=== PATIENT | female | born 1955 | race African-American/Black ===

== ENCOUNTER 2020-04-16 00:44 | Inpatient (IN) | payer MEDICARE, OTHER ==
[2020-04-16] VITALS (7 sets, daily range): BP systolic 127–182; BP diastolic 70–91
[~2020-04-16] VITALS: Ht 172.7 cm; Wt 75.4 kg
--- NOTE | 2020-04-16 00:55 | NUR ---
ED Nurse Note: Pt brought into ED from home by [facility] for c/o generalized body pain with severe muscle spasms that have become worse over the last 3 days. Pt is aaox4, breathing is normal and unlabored. Pt appears moderately anxious. No cough, SOB or fever. Pt blood sugar was 394 on scene per [facility]. Pt connected to environmental monitoring specialist, safety measures in place. Will continue to monitor.
[2020-04-16] MEDS ORDERED: Morphine Sulfate 4mg/ml Inj (IV USE ONLY) IVP ONE (01:15)
--- NOTE | 2020-04-16 01:15 | NUR ---
ED Nurse Note: Blood drawn by RN and sent to lab.
[2020-04-16 01:35] LABS: BASOPHILS % (AUTO) 0.8 % (0.0-2.0); EOSINOPHILS % (AUTO) 1.9 % (0.0-3.0); HEMATOCRIT 39.4 % (37.0-47.0); HEMOGLOBIN 13.5 G/DL (12.0-16.0); MEAN CORPUSCULAR VOLUME 96 FL (80-99); MONOCYTES % (AUTO) 9.5 % (1.0-10.0); NEUTROPHILS % (AUTO) 57.8 % (45.0-75.0); PLATELET COUNT 274 K/UL (150-450); RED BLOOD COUNT 4.11 M/UL (4.20-5.40); RED CELL DISTRIBUTION WIDTH 11.6 % (11.6-14.8)
[2020-04-16 01:41] LABS: ANION GAP 8 mmol/L (5-15); BLOOD UREA NITROGEN 16 mg/dL (7-18); CALCIUM 8.7 MG/DL (8.5-10.1); CARBON DIOXIDE 28 MMOL/L (21-32); CHLORIDE 103 MMOL/L (98-107); SODIUM 139 MMOL/L (136-145)
[2020-04-16 01:45] LABS: ALANINE AMINOTRANSFERASE 28 U/L (12-78); ALBUMIN 3.9 G/DL (3.4-5.0); ALKALINE PHOSPHATASE 77 U/L (46-116); ASPARTATE AMINO TRANSFERASE 21 U/L (15-37); BILIRUBIN,TOTAL 0.3 MG/DL (0.2-1.0); CREATINE KINASE 191 U/L (26-308)
[2020-04-16] MEDS ORDERED: Miralax 17gm pkt ORAL PRN (02:30)
--- NOTE | 2020-04-16 02:45 | NUR ---
ED Nurse Note: ERMD aware of pt elevated BP.
--- NOTE | 2020-04-16 02:54 | Emergency Room Report ---
History of Present Illness General Chief Complaint: Pain Source: Patient Present Illness HPI 64-year-old female presents the ED for evaluation. Complaining of cramping pain in her legs. Started a few days ago. Radiating to her abdomen and chest. 10 out of 10, throbbing, nonradiating. Denies shortness of breath. States that she suffered a fall in July last year and had to stay in a group home facility until about October of this year. States that he had cramping sensations like this here and there in the past but never this severe. No other aggravating relieving factors. 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 Patient History Past Medical History: DM, HTN Past Surgical History: none Pertinent Family History: none Social History: Denies: smoking, alcohol use, drug use Now: No Immunizations: UTD Reviewed Nursing Documentation: PMH: Agreed; PSxH: Agreed Nursing Documentation-PMH Past Medical History: No History, Except For Hx Hypertension: Yes Hx Diabetes: Yes Review of Systems All Other Systems: negative except mentioned in HPI Physical Exam Vital Signs Date Time Temp Pulse Resp B/P (MAP) Pulse Ox O2 Delivery O2 Flow Rate FiO2 04/16/20 00:45 98.6 82 16 127/91 (103) 99 Room Air Sp02 EP Interpretation: reviewed, normal General Appearance: alert, GCS 15, non-toxic, mild distress Head: normocephalic, atraumatic Eyes: bilateral eye normal inspection, bilateral eye PERRL ENT: hearing grossly normal, normal pharynx, no angioedema, normal voice Neck: full range of motion, supple/symm/no masses Respiratory: chest non-tender, lungs clear, normal breath sounds, speaking full sentences Cardiovascular #1: regular rate, rhythm, no edema Cardiovascular #2: 2+ carotid (R), 2+ carotid (L), 2+ radial (R), 2+ radial (L) , 2+ dorsalis pedis (R), 2+ dorsalis pedis (L) Gastrointestinal: normal bowel sounds, non tender, soft, non-distended, no guarding, no rebound Rectal: deferred Genitourinary: normal inspection, no CVA tenderness Musculoskeletal: back normal, normal range of motion, gait/station normal, non- tender Neurologic: alert, motor strength/tone normal, oriented x3, sensory intact, responsive, speech normal Psychiatric: judgement/insight normal, memory normal, mood/affect normal, no suicidal/homicidal ideation Reflexes: 3+ bicep (R), 3+ bicep (L), 3+ tricep (R), 3+ tricep (L), 3+ knee (R) , 3+ knee (L) Skin: no rash Lymphatic: no adenopathy Medical Decision Making Diagnostic Impression: Primary Impression: ACS (acute coronary syndrome) Additional Impression: Muscle cramps ER Course Hospital Course 64-year-old female presents with cramping pains in the legs abdomen and chest. Differential diagnoses include: ME/unstable angina, contusion, muscle strain Clinical course Patient placed on stretcher. on cardiac cath rn. After initial history and physical I ordered labs, EKG, chest x-ray, valium, morphine labs reviewed- no leukocytosis, hb/hct stable, electrolytes ok, trop 0.145 EKG - NSR no acute ischemic changes interpreted by me Chest x-ray- no acute process given aspirin. given hydralazine for elevated BP Case discussed with Dr. Tim and he agreed to accept the patient to his service for further care and support I. I feel this is a highly complex case requiring extensive working including EKG/Rhythm strip, Xray/CT/US, Blood/urine lab work, repeat exams while in ED, and administration of strong opiates/narcotics for pain control, admission to hospital or close patient follow up. Diagnosis - ACS, muscle cramps admitted to telemetry in serious condition Labs Test 04/16/20 01:15 White Blood Count 7.0 K/UL (4.8-10.8) Red Blood Count 4.11 M/UL (4.20-5.40) Hemoglobin 13.5 G/DL (12.0-16.0) Hematocrit 39.4 % (37.0-47.0) Mean Corpuscular Volume 96 FL (80-99) Mean Corpuscular Hemoglobin 32.9 PG (27.0-31.0) Mean Corpuscular Hemoglobin Concent 34.4 G/DL (32.0-36.0) Red Cell Distribution Width 11.6 % (11.6-14.8) Platelet Count 274 K/UL (150-450) Mean Platelet Volume 7.1 FL (6.5-10.1) Neutrophils (%) (Auto) 57.8 % (45.0-75.0) Lymphocytes (%) (Auto) 30.0 % (20.0-45.0) Monocytes (%) (Auto) 9.5 % (1.0-10.0) Eosinophils (%) (Auto) 1.9 % (0.0-3.0) Basophils (%) (Auto) 0.8 % (0.0-2.0) Sodium Level 139 MMOL/L (136-145) Potassium Level 4.0 MMOL/L (3.5-5.1) Chloride Level 103 MMOL/L (98-107) Carbon Dioxide Level 28 MMOL/L (21-32) Anion Gap 8 mmol/L (5-15) Blood Urea Nitrogen 16 mg/dL (7-18) Creatinine 1.0 MG/DL (0.55-1.30) Estimat Glomerular Filtration Rate > 60 mL/min (>60) Glucose Level 345 MG/DL (74-106) Calcium Level 8.7 MG/DL (8.5-10.1) Total Bilirubin 0.3 MG/DL (0.2-1.0) Aspartate Amino Transf (AST/SGOT) 21 U/L (15-37) Alanine Aminotransferase (ALT/SGPT) 28 U/L (12-78) Alkaline Phosphatase 77 U/L (46-116) Total Creatine Kinase 191 U/L (26-308) Troponin I 0.145 ng/mL (0.000-0.056) Total Protein 7.9 G/DL (6.4-8.2) Albumin 3.9 G/DL (3.4-5.0) Globulin 4.0 g/dL Albumin/Globulin Ratio 1.0 (1.0-2.7) EKG Diagnostic Results Rate: normal Rhythm: NSR ST Segments: no acute changes ASA given to the pt in ED: Yes Rhythm Strip Diag. Results EP Interpretation: yes Rhythm: NSR, no PVC's, no ectopy Chest X-Ray Diagnostic Results Chest X-Ray Diagnostic Results : Chest X-Ray Ordered: Yes # of Views/Limited/Complete: 1 View Indication: Chest Pain EP Interpretation: Yes Interpretation: no consolidation, no effusion, no pneumothorax, no acute cardiopulmonary disease Impression: No acute disease Electronically Signed by: Electronically signed by Kimani Mcleod MD Last Vital Signs Date Time Temp Pulse Resp B/P (MAP) Pulse Ox O2 Delivery O2 Flow Rate FiO2 04/16/20 00:55 98.6 82 16 127/91 99 Room Air Status: improved Disposition: ADMITTED INPATIENT Condition: Serious Referrals: Kelvin Tim MD (PCP) Kimani Mcleod MD Apr 16, 2020 02:54
--- NOTE | 2020-04-16 03:05 | NUR ---
ED Nurse Note: Report given to OLVIN Marrero.
--- NOTE | 2020-04-16 03:10 | NUR ---
ED Nurse Note: Pt c/o pain at this time.
[2020-04-16] MEDS: Morphine Sulfate 4mg/ml Inj (IV USE ONLY) IVP PRN ×4 (03:13→20:27)
[2020-04-16] MEDS ORDERED: GLIPIZIDE5 MG ORAL (03:17)
[2020-04-16] MEDS ORDERED: ENALAPRIL MALEA10 MG ORAL (03:17)
--- NOTE | 2020-04-16 03:20 | NUR ---
ED Nurse Note: Pt is stable for transfer to tele unit at this time per ERMD. Pt is aaox4, no respiratory distress. Pt taken to unit via gurney, connected to acetone recovery worker by harper and RN. Pt vitals are stable. Endorsed to receiving RN that pt was given morphine just prior to transfer to unit. Pt IV is patent and intact. Pt belongings sent with pt.
--- NOTE | 2020-04-16 04:53 | NUR ---
NURSE NOTES: Received patient report from MAYKEL Murillo RN. Patient is AO x 4. Patient is in 9/ 10 pain from the muscles spasms that come and go on the right side of her leg and goes up to her chest. Patients blood pressure upon arrival was 205/97. IV is patent and flushed. There are no signs of erythema, infiltration, or bleeding. Bed is in the lowest position, call light is within reach. Will call her Doctor to add orders.
--- NOTE | 2020-04-16 04:56 | NUR ---
NURSE NOTES: Spoke to Dr. Tim. Informed him about patients troponin level being 0.145, no new orders given. Also informed him of the muscle spasms, he ordered baclofen 10 mg. For the high blood pressure he ordered hydralazine 25 mg. Ordered the patient to be on a sliding scale and on a diabetic diet. Will carry out orders.
[2020-04-16] MEDS: NovoLOG Insulin Flexpen SUBQ SCH ×4 (06:33→20:28)
--- NOTE | 2020-04-16 07:21 | NUR ---
HAND-OFF: Report given to OLVIN Tate. Patient shows no signs of distress. Patient is still complaining about pain after morphine 4mg given. Endorsed plan of care.
--- NOTE | 2020-04-16 07:38 | NUR ---
NURSE NOTES: Received report from OLVIN Marrero. Pt awake, A/O x4, still complains of 8/10 pain that started from L lower extremity and radiates up to the chest. Morphine was administered per RN. Observed mild L lip drooping, per pt, she has a hx of TIA about 3yrs ago. No s/sx of acute distress, breathing even and unlabored in RA. Received a call from lab regarding troponin level of 0.140 (from 0.145 yesterday). Bed on lowest position, call light within reach. Will continue plan of care.
[2020-04-16] MEDS: Enoxaparin 40mg Inj SUBQ SCH (08:41)
--- NOTE | 2020-04-16 08:45 | Diagnostic Imaging Report ---
Indication: Chest pain Technique: One view of the chest Comparison: none Findings: Lungs and pleural spaces are clear. Heart size is normal. Impression: No acute process
--- NOTE | 2020-04-16 12:22 | NUR ---
CASE MANAGEMENT:REVIEW 64 YR OLD FEMALE BIBA FROM HOME CC:BODY PAIN AND MUSCLE SPASMS SI: ACS. MUSCLE CRAMPS 98.6 82 16 127/91 99% ON RA GLUCOSE+345 TROPONIN(+) 0.145 AND 0.140 IS: IV MORPHINE 500CC NS BOLUS VALIUM PO ASA PO CHEST XRAY : TO TELEMETRY DCP: FROM HOME PLAN: SERIAL TROPONIN'S MRI SPINE
--- NOTE | 2020-04-16 12:25 | History & Physical ---
History and Physical History & Physicial #[id number] Kelvin Tim MD Apr 16, 2020 12:25
[2020-04-16] MEDS: Aspirin Baby 81mg NG SCH (13:09)
[2020-04-16] MEDS: Enalapril 5mg tab ORAL SCH (13:09)
--- NOTE | 2020-04-16 16:40 | NUR ---
NURSE NOTES: Made Dr Andrews aware that troponin level is 0.167.
--- NOTE | 2020-04-16 17:15 | Consultation ---
DATE OF CONSULTATION: 04/16/2020 REFERRING PHYSICIAN: Kelvin Tim M.D. REASON FOR REFERRAL: Chest pain. HISTORY OF PRESENT ILLNESS: This is a 64-year-old female who has several medical problems as detailed below. The patient presents to the hospital because of recurrent bouts of pain in the shoulders on the left side, sometimes on the right side. She has been having some cramping in her legs that come all the way up, sometimes from her foot or calf to her thigh to her chest on the right side and to the shoulders and to the head, and these pains usually last about 2 to 3 days, though she has been having severe spasms more recently and the severe spasm would cause the patient to come to the hospital. She has a capacity to walk with a walker, although her walker is loose. She has had a couple of falls, although she gets on her knees. She does not end up falling down completely as she has on prior occasions, where she was hospitalized at [facility]. There is occasional shortness of breath. There is no PND, although she uses two pillows at night to sleep with. She starts out with many, but by the time she wakes up in the morning, there are only 2 pillows and that is what she is comfortable with. She has occasional palpitations. She denies any lightheadedness. She has not had any cardiac problems at all. PAST MEDICAL HISTORY: Positive for history of fall, multifactorial, situational, mechanical, and small focus of left supraspinous tendon, not full-thickness, secondary to fall, history of rib pain, flank pain, likely felt to be musculoskeletal. No rib fractures. History of left hip pain without a fracture, history of chest pain, shortness of breath, lumbar radiculopathy, chronic low back pain, neck pain, diabetes mellitus type 2, spondylosis, history of hepatitis C, for which she took Harvoni and got cleared according to herself, history of hypertension, cervical spondylosis, osteoarthritis, foraminal stenosis of the cervical spine, hereditary hemochromatosis according to the chart, and history of trigeminal neuralgia. She has had a history of appendectomy and history of back surgery with L5-S1 laminectomy, diskectomy, foraminectomy. ALLERGIES: She is reportedly allergic to doxycycline, [place], and tramadol. SOCIAL HISTORY: Quit 15 years ago tobacco. Denies any alcohol or drugs. She lives at home. Her son lives with her. REVIEW OF SYSTEMS: GI: Positive for some nausea and some constipation. No black or bloody stools. : Negative. PULMONARY: Negative. CONSTITUTIONAL: Negative. NEUROLOGIC: As mentioned in HPI. PHYSICAL EXAMINATION: GENERAL: A middle-aged female, in no respiratory distress, although in the middle of my evaluation, she developed a severe spasm, started out in her foot all the way down to her leg on the right side and eventually left. She was very uncomfortable at that time. LUNGS: Clear to auscultation, percussion. CARDIAC: S1 is normal. S2 is normal. Regular rate and rhythm. No heaves or thrills. CHEST WALL: The deltopectoral groove area and the surrounding area is tender to palpation, and she indicates this seems to be the same pain that she has been having for the past few months intermittently. She is not able to lift her left arm up above her shoulder because of significant pain. ABDOMEN: Soft, obese, positive bowel sounds. EXTREMITIES: There is no clubbing, cyanosis. There is no edema. NEUROLOGIC: She is awake and alert and responsive. Her spasm that she was experiencing lasted only a matter of 15 seconds or so. LABS: Her white count is 7, hemoglobin 13.5, and platelet count of 274. Sodium is 139, potassium 4.0, chloride 103, bicarb 28, BUN of 16, creatinine 1.0, and glucose of 345. Her blood sugar has been 242 to 345. Troponins have been 0.014 and 0.0145, and vitamin B12 level is pending. She did have x-ray of her chest that showed lungs and pleural space to be clear. No acute processes. ASSESSMENT AND PLAN: 1. Chest pain, possible left chest wall pain. 2. Leg cramps. 3. Diabetes mellitus. 4. Hypertension. 5. Diverticulosis. 6. Cervical spine and lumbar spine radiculopathy. Dr. Tim, this patient was seen in cardiac consultation. It seemed that the pain may be exacerbated by movement of the left arm and then palpation of the chest wall, suggestive the pain is related to musculoskeletal in origin. Her cardiac enzymes are minimally abnormal, but appeared to be relatively flat. A third one will be ordered. Her telemetry is sinus. The EKG shows normal sinus rhythm, no ST or T-wave abnormalities. An echocardiogram will be ordered for evaluation of wall motion and further recommendation depending on the results of the testing. Steven Andrews M.D. DR: KYM JOB#: [id number] CC:
--- NOTE | 2020-04-16 19:15 | History and Physical Report ---
DATE OF ADMISSION: 04/16/2020 HISTORY OF PRESENT ILLNESS: This is a 64-year-old female with history of falls, diabetes, history of small-focus tear of the left supraspinatus muscle, hypertension, chronic left hip pain and lower back pain, trigeminal neuralgia, hereditary hemochromatosis, who presented to the emergency room for generalized body pain and severe muscle spasms that were worsening over the last 3 days. She states that she has leg pain with spasms that travel up her body. She also has lower back pain. She states her lower back pain is better with sitting and worse with standing. She states her leg pain travels up her body accompanied by spasms and leaves her with headaches and numbness. She also has been having chest pain, substernal in location, radiating to the left shoulder as well as the neck over the last 6 weeks. She states the chest pain has an exertional component. She denies any shortness of breath. She has history of cramping in the legs; however, nothing has been this severe. She denies nocturnal cramping. She denies cramping getting better with moving her legs. PAST MEDICAL HISTORY: Includes diabetes, hypertension, dysautonomia, chronic left hip pain, trigeminal neuralgia, and hereditary hemochromatosis. PAST SURGICAL HISTORY: None. SOCIAL HISTORY: The patient is a nonsmoker. She does not use any drugs or drink alcohol. MEDICATIONS: Reviewed in [employer]. ALLERGIES: No known drug allergies. REVIEW OF SYSTEMS: A 12-point review of systems negative except for pertinent positives as mentioned above. PHYSICAL EXAMINATION: VITAL SIGNS: Temperature 98.6, pulse is 82, respiratory rate 16, blood pressure 127/91. GENERAL: No acute distress. The patient is alert, awake, and oriented x3. HEENT: Normocephalic/atraumatic. NECK: Supple. No JVD. LUNGS: Clear to auscultation bilaterally. No crackles, rhonchi, or rales. CARDIOVASCULAR: Regular rate and rhythm. Normal S1, S2. ABDOMEN: Soft, nontender, and nondistended. EXTREMITIES: No clubbing, cyanosis, or edema. NEUROLOGIC: Motor, the patient can lift the right lower leg 4/5 and the left lower leg 3/5. Cranial nerves II through XII intact. DIAGNOSTIC DATA: EKG shows normal sinus rhythm. No ST changes. X-ray shows no acute process. LABORATORY DATA: CBC, white count of 7, hemoglobin 13.5, and platelet count 274,000. BMP, sodium 139, potassium is 4, chloride is 103, CO2 is 28, BUN is 16, creatinine is 1, glucose is 345, AST is 21, ALT is 28, alkaline phosphatase 77. Troponin is 0.145. ASSESSMENT: 1. Lower extremity pain, radiating up to the lower back, rule out spinal stenosis. 2. Chest pain with intermediate troponin. 3. Diabetes. 4. Hypertension. 5. History of trigeminal neuralgia. 6. Hemochromatosis. PLAN: 1. Admit the patient to telemetry. 2. Cardiology consult. 3. Neurology consult. 4. Baclofen 10 mg p.o. b.i.d. for muscle spasms. 5. MRI of spine. 6. Check ESR, vitamin B12, GER. 7. Start aspirin. 8. Full code. 9. DVT prophylaxis given. Kelvin Tim MD DR: MITCHEL JOB#: [id number] CC:
--- NOTE | 2020-04-16 19:28 | NUR ---
HAND-OFF: Report given to OLVIN Marrero. Pt in stable condition, endorsed plan of care.
--- NOTE | 2020-04-16 19:40 | NUR ---
NURSE NOTES: Received patient report from OLVIN Tate. Patient shows no signs of distress or pain at the time. Patient states she is feeling much better. AO x 4. Per RN, Dr. Andrews is aware of troponin level being 0.167. IV patent and flushed. There are no signs of erythema, infiltration, or bleeding. Bed is in the lowest position, call light is within reach, side rails up x 3. Will continue to monitor.
--- NOTE | 2020-04-16 19:55 | Diagnostic Imaging Report ---
MRI LUMBAR SPINE WITHOUT CONTRAST Indication: Reason For Exam: Weakness, spasms Technique: Sagittal T1 and T2 fast spin echo, sagittal STIR, axial T1 and T2 fast spin-echo images of the lumbar spine Comparison: MRI lumbar spine dated 03/28/2011 Findings: Lumbar vertebral body heights are maintained. There are multilevel reactive endplate marrow changes. There is multilevel disc desiccation. The conus is unremarkable and terminates at the T12-L1 level. L1-2: No significant disc bulge, central or foraminal stenosis. L2-3: Disc osteophyte complex formation with moderate broad-based disc bulge and ligamentum flavum hypertrophy leading to lateral recess narrowing and mild spinal canal stenosis. There is mild right and moderate left foraminal narrowing with abutment of the exiting left L2 nerve root. L3-4: Disc osteophyte complex formation with moderate broad-based disc bulge and ligament flavum and hypertrophy leading to mild spinal canal stenosis. There is mild bilateral foraminal narrowing with abutment of the exiting left L3 nerve root. L4-5: Disc osteophyte complex formation with moderate broad-based disc bulge and ligamentum flavum hypertrophy leading to mild spinal canal stenosis. There is lateral recess narrowing. There is moderate bilateral foraminal narrowing with abutment of the exiting L4 nerve roots. L5-S1: Disc osteophyte complex formation with moderate left eccentric broad-based disc herniation, ligamentum flavum hypertrophy, and bilateral facet arthrosis, leading to bilateral lateral recess narrowing. There is severe left and moderate right foraminal narrowing with abutment of the exiting left L5 nerve root Impression: Multiple level discogenic degenerative disease as described in detail above, which has progressed slightly from prior examination.
[2020-04-17] VITALS: BP 164/76
[2020-04-17] MEDS: Morphine Sulfate 4mg/ml Inj (IV USE ONLY) IVP PRN ×6 (00:33→22:08)
[2020-04-17 04:00] VITALS: BP 157/79
[2020-04-17] MEDS: NovoLOG Insulin Flexpen SUBQ SCH ×4 (06:00→21:10)
--- NOTE | 2020-04-17 07:04 | NUR ---
HAND-OFF: Report given to OLVIN Tate. Patient shows no signs of distress or pain at the time. Endorsed plan of care.
--- NOTE | 2020-04-17 07:40 | NUR ---
NURSE NOTES: Received report from OLVIN Marrero. Pt awake, A/O x4, able to make needs known. Pt breathing even and unlabored in RA, no s/sx of acute distress. IV site on R AC patent and asymptomatic. Bed on lowest position, call light within reach. Will continue plan of care.
[2020-04-17 08:00] VITALS: BP 132/72
[2020-04-17] MEDS: Enoxaparin 40mg Inj SUBQ SCH (09:05)
[2020-04-17] MEDS: Aspirin Baby 81mg NG SCH (09:08)
[2020-04-17] MEDS: Enalapril 5mg tab ORAL SCH (09:11)
--- NOTE | 2020-04-17 09:21 | NUR ---
CASE MANAGEMENT:REVIEW 04/17/20 SI: CHEST PAIN. LE PAIN, RADIATING TO BACK...R/O SPINAL STENOSIS 97.9 78 18 132/72 99% ON RA TROPONIN(+) 0.158 IS: ASA PO QD VASOTEC PO QD LOVENOX SQ Q24 BACLOFEN PO BID SS INSULIN AC+HS IV MORPHINE Q4HRS : TELEMETRY STATUS DCP: FROM HOME PLAN: 2DECHO PENDING
[2020-04-17 12:00] VITALS: BP 133/76
--- NOTE | 2020-04-17 12:55 | Diagnostic Imaging Report ---
Indication: Lower extremity pain and weakness, lower back pain, full body stable spasms Technique: Sagittal T1 FLAIR PROPELLER, sagittal T2 PROPELLOR, sagittal STIR, axial T2 PROPELLER, axial 3D COSMIC ASPIR images were obtained through the cervical spine Comparison: none Findings: Bony alignment is normal. Vertebral body heights are preserved. Vertebral marrow signal is normal. Intrinsic cord signal is normal. At C2-3, there is minimal degenerative disc narrowing. No significant disc bulge or protrusion, spinal stenosis, or neural foraminal stenosis. At C3-4, there is mild degenerative disc narrowing and endplate irregularity. Circumferential annular bulge results in borderline narrowing of the spinal canal. There is moderate bilateral neural foraminal stenosis predominantly due to uncinate hypertrophy. At C4-5, there is mild degenerative disc narrowing and endplate irregularity. There is circumferential annular bulge as well as right lateral paracentral disc protrusion. This may impinge upon the right side of the cord, definitely impinges on the lateral recess, and results in borderline narrowing of the central spinal canal. There is mild to moderate right, moderate left neural foraminal stenosis at this level. At C5-6, there is mild to moderate degenerative disc narrowing and endplate irregularity. There is generalized circumferential annular bulge which results in borderline narrowing of the spinal canal centrally. There is also right paracentral disc protrusion/osteophyte complex which may narrow the right lateral recess. There is mild right, [id number] left neural foraminal stenosis. At C6-7, there is minimal degenerative disc narrowing. There is generalized circumferential annular bulge, which results in borderline narrowing of the spinal canal. There is mild right, [id number] left neural foraminal stenosis at this level. At C7-T1, no significant disc bulge or protrusion, spinal stenosis, or neural foraminal narrowing. Included extra spinal soft tissues are unremarkable. Impression: No acute abnormality Degenerative changes as detailed on a level by level basis above.
--- NOTE | 2020-04-17 13:17 | Diagnostic Imaging Report ---
Indication: Bilateral lower extremity weakness and pain. Back pain. Body spasms Technique: Sagittal T1 fast spin echo, sagittal T2 fast echo, sagittal STIR, axial T2 fast spin echo images were obtained through the thoracic spine Comparison: 03/28/2011 Findings:There is mild depression of the superior endplate of T12, unchanged. Vertebral body heights are preserved otherwise. Vertebral marrow signal is normal with the exception of mild Modic type II degenerative changes of the mid thoracic spine. Intrinsic cord signal is normal. There is mild multilevel degenerative disc narrowing. At T9-T10, there is right paracentral and subarticular disc protrusion which may slightly compromise right lateral recess. At T7-8 and T8-9, there is bilateral paracentral disc protrusion which does not appear to significantly narrow the spinal canal or lateral recesses. At the remaining levels, no significant disc bulge or protrusion, spinal stenosis, or neural foraminal stenosis. When compared to the prior study, degenerative changes have progressed slightly. Impression: No acute abnormality Minimal degenerative changes, as detailed above
[2020-04-17] MEDS ORDERED: Gadavist 7.5mMol/7.5ml vial IV PRN (15:30)
[2020-04-17 16:00] VITALS: BP 126/78
[2020-04-17 17:02] LABS: CREATINE KINASE 73 U/L (26-140)
[2020-04-17 17:03] LABS: CREATININE 0.9 MG/DL (0.55-1.30)
--- NOTE | 2020-04-17 18:29 | Internal Med Progress Note ---
Subjective Physician Name Kelvin Tim Attending Physician Kelvin Tim MD Current Medications Medications (Trade) Dose Ordered Sig/Ranjeet Route PRN Reason Start Time Stop Time Status Last Admin Dose Admin Acetaminophen (Tylenol) 650 mg Q4H PRN ORAL Mild Pain (Pain Scale 1-3) 04/16/20 02:30 05/16/20 02:29 Aspirin (ASA) 81 mg DAILY NG 04/16/20 12:30 05/31/20 12:29 04/17/20 09:08 Baclofen (Lioresal) 10 mg BID ORAL 04/16/20 09:00 05/16/20 08:59 04/17/20 17:20 Dextrose (Dextrose 50%) 25 ml Q30M PRN IV Hypoglycemia 04/16/20 04:30 07/15/20 04:29 Dextrose (Dextrose 50%) 50 ml Q30M PRN IV Hypoglycemia 04/16/20 04:30 07/15/20 04:29 Enalapril Maleate (Vasotec) 10 mg DAILY ORAL 04/16/20 12:15 05/16/20 12:14 04/17/20 09:11 Enoxaparin Sodium (Lovenox) 40 mg Q24H SUBQ 04/16/20 09:00 07/15/20 08:59 04/17/20 09:05 Gadobutrol (Gadavist) 7.5 mmol NOW PRN IV Radiology Procedure 04/17/20 15:30 04/21/20 15:23 Hydralazine HCl (Apresoline) 25 mg Q6H PRN ORAL For High Blood Pressure 04/16/20 04:30 07/15/20 04:29 Insulin Aspart (NovoLOG) BEFORE MEALS AND HS SUBQ 04/16/20 06:30 07/15/20 06:29 04/17/20 17:25 Morphine Sulfate (Morphine Sulfate) 1 mg Q4H PRN IVP Moderate Pain (Pain Scale 4-6) 04/16/20 02:30 04/23/20 02:29 Morphine Sulfate (Morphine Sulfate) 4 mg Q4H PRN IVP Severe Pain (Pain Scale 7-10) 04/16/20 02:30 04/23/20 02:29 04/17/20 18:08 Ondansetron HCl (Zofran) 4 mg Q6H PRN IVP Nausea & Vomiting 04/16/20 02:30 05/16/20 02:29 Polyethylene Glycol (Miralax) 17 gm HSPRN PRN ORAL Constipation 04/16/20 02:30 05/16/20 02:29 Allergies: Coded Allergies: No Known Allergies (Verified , 03/24/11) ROS Limited/Unobtainable: No All Systems: reviewed and negative except above - leg cramps bilaterally ; lower back pain Objective Last Vital Signs Date Time Temp Pulse Resp B/P (MAP) Pulse Ox O2 Delivery O2 Flow Rate FiO2 04/17/20 16:00 97.7 85 18 126/78 (94) 99 04/17/20 09:00 Room Air Laboratory Tests Test 04/16/20 20:24 04/17/20 05:05 04/17/20 05:42 04/17/20 16:20 POC Whole Blood Glucose 321 MG/DL (74-106) H 161 MG/DL (74-106) H Troponin I 0.158 ng/mL (0.000-0.056) Erythrocyte Sedimentation Rate 45 MM/HR (0-30) H Blood Urea Nitrogen 13 mg/dL (7-18) Creatinine 0.9 MG/DL (0.55-1.30) Estimat Glomerular Filtration Rate > 60 mL/min (>60) Total Creatine Kinase 73 U/L (26-140) C-Reactive Protein, Quantitative 2.4 mg/dL (0.00-0.90) H Vitamin B12 Level 703 PG/ML (193-986) Methylmalonic Acid Pending Rapid Plasma Reagin Pending Treponema pallidum Ab (FTA-ABS) Pending Intake and Output 04/16/20 04/17/20 19:00 07:00 Intake Total 600 ml 240 ml Output Total 500 ml Balance 600 ml -260 ml Intake Oral 600 ml 240 ml Output Urine Total 500 ml # Voids 5 1 Objective GENERAL: No acute distress. The patient is alert, awake, and oriented x3. HEENT: Normocephalic/atraumatic. NECK: Supple. No JVD. LUNGS: Clear to auscultation bilaterally. No crackles, rhonchi, or rales. CARDIOVASCULAR: Regular rate and rhythm. Normal S1, S2. ABDOMEN: Soft, nontender, and nondistended. EXTREMITIES: No clubbing, cyanosis, or edema. NEUROLOGIC: Motor, the patient can lift the right lower leg 4/5 and the left lower leg 3/5. Cranial nerves II through XII intact. Assessment/Plan Assessment/Plan ASSESSMENT: 1. Lumbar pain 2/2 severe left and moderate right foraminal narrowing with abutment of the exiting left L5 nerve root 2. Chest pain with intermediate troponin. 3. Diabetes. 4. Hypertension. 5. History of trigeminal neuralgia. 6. Hemochromatosis. PLAN: 1. telemetry. 2. Cardiology consult. 3. Neurology consult. 4. Baclofen 10 mg p.o. b.i.d. for muscle spasms. 5. MRI of spine (C/T/L) - shows severe left and moderate right foraminal narrowing with abutment of the exiting left L5 nerve root 6. PT evaluation 7. cw aspirin. 8. Full code. 9. DVT prophylaxis given. 10. Neurosurgery evaluation 11. trial of decadron 12. consider lumbar epidural Kelvin Tim MD Apr 17, 2020 18:29
[2020-04-17] MEDS ORDERED: Medrol Dosepak (RX TO ENTER) ORAL SCH (18:45)
--- NOTE | 2020-04-17 19:32 | Cardiology Progress Note ---
Assessment/Plan Assessment/Plan 1. Chest pain, possible left chest wall pain. 2. Leg cramps. 3. Diabetes mellitus. 4. Hypertension. 5. Diverticulosis. 6. Cervical spine and lumbar spine radiculopathy still with tenderness / pian trop relatively falt will repeat level tonite en in am ekg is poor quality cloth tester placed incorrectly i am not sure it belong to this pt , i have asked rn to repeat ekg tonite will order one for tomorrow as well duplex neg spin report ntoed echo reviewed personally wall motion is normal dependign onthe ekg mauy consider other option Subjective Cardiovascular: Reports: chest pain; Denies: lightheadedness, palpitations Respiratory: Denies: shortness of breath Gastrointestinal/Abdominal: Denies: abdominal pain Genitourinary: Denies: burning Subjective pain present all the tiem tnder to touch and with movmen of the left arm has pain in micheal shoudler , requesting more pain med Objective Last 24 Hour Vital Signs Date Time Temp Pulse Resp B/P (MAP) Pulse Ox O2 Delivery O2 Flow Rate FiO2 04/17/20 16:00 97.7 85 18 126/78 (94) 99 04/17/20 15:19 85 04/17/20 12:00 97.9 82 20 133/76 (95) 98 04/17/20 11:29 83 04/17/20 09:11 132/72 04/17/20 09:00 Room Air 04/17/20 08:00 97.9 78 18 132/72 (92) 99 04/17/20 07:51 75 04/17/20 04:54 97.6 04/17/20 04:00 97.3 74 16 157/79 (105) 98 04/17/20 04:00 73 04/17/20 00:00 90 04/17/20 00:00 97.1 80 19 164/76 (105) 97 04/16/20 21:00 Room Air 04/16/20 20:00 96.8 79 16 154/72 (99) 98 04/16/20 20:00 82 General Appearance: no apparent distress, alert Neck: supple Cardiovascular: normal rate, regular rhythm Respiratory/Chest: lungs clear Abdomen: non tender, soft Extremities: no swelling Intake and Output 04/16/20 04/17/20 19:00 07:00 Intake Total 600 ml 240 ml Output Total 500 ml Balance 600 ml -260 ml Intake Oral 600 ml 240 ml Output Urine Total 500 ml # Voids 5 1 Laboratory Tests Test 04/16/20 20:24 04/17/20 05:05 04/17/20 05:42 04/17/20 16:20 POC Whole Blood Glucose 321 MG/DL (74-106) H 161 MG/DL (74-106) H Troponin I 0.158 ng/mL (0.000-0.056) Erythrocyte Sedimentation Rate 45 MM/HR (0-30) H Blood Urea Nitrogen 13 mg/dL (7-18) Creatinine 0.9 MG/DL (0.55-1.30) Estimat Glomerular Filtration Rate > 60 mL/min (>60) Total Creatine Kinase 73 U/L (26-140) C-Reactive Protein, Quantitative 2.4 mg/dL (0.00-0.90) H Vitamin B12 Level 703 PG/ML (193-986) Methylmalonic Acid Pending Rapid Plasma Reagin Pending Treponema pallidum Ab (FTA-ABS) Pending Steven Andrews MD Apr 17, 2020 19:32
--- NOTE | 2020-04-17 19:48 | NUR ---
HAND-OFF: Report given to OLVIN Davis and Yamile RN. Pt in stable condition, endorsed plan of care.
--- NOTE | 2020-04-17 19:48 | NUR ---
NURSE NOTES: Patient received from [facility]. Patient in stable condition. Saturating well on Room air at 97%. IV site on Righjt AC 20G intact and patent. Alert and oriented x4. Noted to be in pain at this moment 07/27, will give PRN morphine when ready for administration. Purewick working well. Bed is in lowest position and locked. Call light and bedside table within reach. Will continue plan of care.
[2020-04-17 20:00] VITALS: BP 167/81
[2020-04-17] MEDS: methylPREDNISolone 8mg QHS ORAL SCH (21:09)
--- NOTE | 2020-04-17 22:05 | NUR ---
NURSE NOTES: Contacted and spoke with Dr Tim. Informed him that pt said the baclofen bid was not helping her and wanted a change to the regimen. He dc'd the baclofen and started flexeril 10 mg tid, giving first dose now. Orders entered and carried out. Will administer as soon as verified with pharmacy- [facility]. Will reassess.
[2020-04-17] MEDS: Cyclobenzaprine 10mg Tab ORAL SCH (23:04)
[2020-04-17] MEDS: HydrALAZINE 25mg tab ORAL PRN (23:58)
[2020-04-18] VITALS (8 sets, daily range): BP systolic 133–194; BP diastolic 70–87
--- NOTE | 2020-04-18 01:45 | NUR ---
NURSE NOTES: Patient's blood pressure was 194/87 PRN Hydralazine 25mg PO given. Rechecked blood pressure and was still relatively high on all four extremities at high 160s. Notified Dr. Tim and ordered Amlodipine 5mg now and q daily. Orders entered and carried out. Will rechech blood pressure
--- NOTE | 2020-04-18 02:15 | NUR ---
NURSE NOTES: Rechecked blood pressure 157/71.
[2020-04-18] MEDS: Morphine Sulfate 4mg/ml Inj (IV USE ONLY) IVP PRN ×4 (02:19→16:15)
[2020-04-18] MEDS: methylPREDNISolone 4mg QAC ORAL SCH (06:00)
[2020-04-18] MEDS: HydrALAZINE 25mg tab ORAL PRN (06:05)
[2020-04-18] MEDS: NovoLOG Insulin Flexpen SUBQ SCH ×4 (06:08→21:16)
--- NOTE | 2020-04-18 06:54 | NUR ---
NURSE NOTES: Received troponin level 0.167 slightly increased from 0.[address] Andrews.
--- NOTE | 2020-04-18 07:30 | NUR ---
HAND-OFF: Report given to Neptali [facility]. Patient is in stable condition. Endorsed plan of care.
--- NOTE | 2020-04-18 07:55 | NUR ---
NURSE NOTES: Received patient in bed. Awake, A/O x4. Patient has 6/10 pain, pain medication previously given. On room air. Iv in the Right AC, site intact. Purewick in place. Bed low and locked, side rails up x2, sitting in high -fowlers.
[2020-04-18] MEDS: Aspirin Baby 81mg NG SCH (08:13)
[2020-04-18] MEDS: Cyclobenzaprine 10mg Tab ORAL SCH ×3 (08:13→18:01)
[2020-04-18] MEDS: Enalapril 5mg tab ORAL SCH (08:13)
[2020-04-18] MEDS: Enoxaparin 40mg Inj SUBQ SCH (08:18)
--- NOTE | 2020-04-18 10:12 | NUR ---
P.T Note: P.T evaluation completed and tx initiated. Please refer to P.T evaluation for current functional status. Pt is alert, O x 4. Pleasant and cooperative. Pt has limited participation in functional activity secondary to pain and spasms in the lower back aggravte Addendum: 04/18/20 at 1025 by DANNY SANCHEZ PT P.T Note: P.T evaluation completed and tx initiated. Please refer to P.T evaluation for current functional status. Pt is alert, O x 4. Pleasant and cooperative. Pt has limited participation in functional activity secondary to pain and spasms in the lower back extending to bilateral thighs, lower legs and ankles aggravated by movement initiation and certain positioning. Pt also presented LOM on the L shoulder and asymmetrical weakness on LLE. Pt currently required extended time and MOD A X 1 to initiate and complete supine to/from sitting and sitting to/from standing using the FWW. Pt was able to stand using the FWW and was only able to take 2-3 small steps with MOD A X 1. Pt is highly motivated to get better and would benefit from skilled P.T services to improve her strength , balance and endurance to increase mobility independence and safety. Recommend SNF for short term rehab intervention VS Home P.T at [place]. Thank you for this referral.
[2020-04-18] MEDS: methylPREDNISolone 4mg BIDLS ORAL SCH ×2 (11:12→16:14)
--- NOTE | 2020-04-18 13:08 | Internal Med Progress Note ---
Subjective Physician Name Kelvin Tim Attending Physician Kelvin Tim MD Current Medications Medications (Trade) Dose Ordered Sig/Ranjeet Route PRN Reason Start Time Stop Time Status Last Admin Dose Admin Acetaminophen (Tylenol) 650 mg Q4H PRN ORAL Mild Pain (Pain Scale 1-3) 04/16/20 02:30 05/16/20 02:29 Amlodipine Besylate (Norvasc) 5 mg DAILY ORAL 04/19/20 09:00 05/19/20 08:59 Aspirin (ASA) 81 mg DAILY NG 04/16/20 12:30 05/31/20 12:29 04/18/20 08:13 Cyclobenzaprine HCl (Flexeril) 10 mg THREE TIMES A DAY ORAL 04/17/20 22:15 05/17/20 22:14 04/18/20 12:10 Dextrose (Dextrose 50%) 25 ml Q30M PRN IV Hypoglycemia 04/16/20 04:30 07/15/20 04:29 Dextrose (Dextrose 50%) 50 ml Q30M PRN IV Hypoglycemia 04/16/20 04:30 07/15/20 04:29 Enalapril Maleate (Vasotec) 10 mg DAILY ORAL 04/16/20 12:15 05/16/20 12:14 04/18/20 08:13 Enoxaparin Sodium (Lovenox) 40 mg Q24H SUBQ 04/16/20 09:00 07/15/20 08:59 04/18/20 08:18 Gadobutrol (Gadavist) 7.5 mmol NOW PRN IV Radiology Procedure 04/17/20 15:30 04/21/20 15:23 Hydralazine HCl (Apresoline) 25 mg Q6H PRN ORAL For High Blood Pressure 04/16/20 04:30 07/15/20 04:29 04/18/20 06:05 Insulin Aspart (NovoLOG) BEFORE MEALS AND HS SUBQ 04/16/20 06:30 07/15/20 06:29 04/18/20 12:13 Methylprednisolone (Medrol) 4 mg ACBREAKFAST ORAL 04/18/20 06:30 04/22/20 08:30 04/18/20 06:00 Methylprednisolone (Medrol) 4 mg BIDLS ORAL 04/18/20 11:30 04/18/20 18:00 04/18/20 11:12 Methylprednisolone (Medrol) 4 mg Q24H ORAL 04/20/20 12:30 04/20/20 13:00 Methylprednisolone (Medrol) 4 mg QHS ORAL 04/19/20 21:00 04/21/20 22:00 Methylprednisolone (Medrol) 8 mg QHS ORAL 04/17/20 21:00 04/18/20 22:00 04/17/20 21:09 Morphine Sulfate (Morphine Sulfate) 1 mg Q4H PRN IVP Moderate Pain (Pain Scale 4-6) 04/16/20 02:30 04/23/20 02:29 Morphine Sulfate (Morphine Sulfate) 4 mg Q4H PRN IVP Severe Pain (Pain Scale 7-10) 04/16/20 02:30 04/23/20 02:29 04/18/20 11:13 Ondansetron HCl (Zofran) 4 mg Q6H PRN IVP Nausea & Vomiting 04/16/20 02:30 05/16/20 02:29 Polyethylene Glycol (Miralax) 17 gm HSPRN PRN ORAL Constipation 04/16/20 02:30 05/16/20 02:29 Allergies: Coded Allergies: No Known Allergies (Verified , 03/24/11) All Systems: reviewed and negative except above - leg spasms Objective Last Vital Signs Date Time Temp Pulse Resp B/P (MAP) Pulse Ox O2 Delivery O2 Flow Rate FiO2 04/18/20 12:00 87 04/18/20 11:31 98.9 19 154/71 (98) 96 04/18/20 09:00 Room Air Laboratory Tests Test 04/17/20 16:20 04/18/20 05:44 04/18/20 11:11 Erythrocyte Sedimentation Rate 45 MM/HR (0-30) H Blood Urea Nitrogen 13 mg/dL (7-18) Creatinine 0.9 MG/DL (0.55-1.30) Estimat Glomerular Filtration Rate > 60 mL/min (>60) Total Creatine Kinase 73 U/L (26-140) C-Reactive Protein, Quantitative 2.4 mg/dL (0.00-0.90) H Vitamin B12 Level 703 PG/ML (193-986) Methylmalonic Acid Pending Rapid Plasma Reagin Non reactive (Non Reactive) Treponema pallidum Ab (FTA-ABS) Pending Troponin I 0.167 ng/mL (0.000-0.056) POC Whole Blood Glucose Pending Intake and Output 04/17/20 04/18/20 19:00 07:00 Intake Total 360 ml Output Total 600 ml Balance -240 ml Intake Oral 360 ml Output Urine Total 600 ml # Voids 2 Objective GENERAL: No acute distress. The patient is alert, awake, and oriented x3. HEENT: Normocephalic/atraumatic. NECK: Supple. No JVD. LUNGS: Clear to auscultation bilaterally. No crackles, rhonchi, or rales. CARDIOVASCULAR: Regular rate and rhythm. Normal S1, S2. ABDOMEN: Soft, nontender, and nondistended. EXTREMITIES: No clubbing, cyanosis, or edema. NEUROLOGIC: Motor, the patient can lift the right lower leg 4/5 and the left lower leg 3/5. Cranial nerves II through XII intact. Assessment/Plan Assessment/Plan ASSESSMENT: 1. Lumbar pain 2/2 severe left and moderate right foraminal narrowing with abutment of the exiting left L5 nerve root 2. Chest pain with intermediate troponin. 3. Diabetes. 4. Hypertension. 5. History of trigeminal neuralgia. 6. Hemochromatosis. PLAN: 1. telemetry. 2. Cardiology consult. 3. Neurology consult. 4. Flexeril 10 mg p.o. TID 5. MRI of spine (C/T/L) - shows severe left and moderate right foraminal narrowing with abutment of the exiting left L5 nerve root 6. awaiting PT evaluation --> if can walk then dc home tomorrow 7. cw aspirin. 8. Full code. 9. DVT prophylaxis given. 10. Neurosurgery evaluation 11. trial of decadron DR MUELLER TO COVER 7-3 to 7-6 Kelvin Tim MD Apr 18, 2020 13:08
[2020-04-18 13:49] LABS: ALANINE AMINOTRANSFERASE 27 U/L (12-78); ALBUMIN 3.6 G/DL (3.4-5.0); ALBUMIN/GLOBULIN RATIO 0.9 (1.0-2.7); ALKALINE PHOSPHATASE 64 U/L (46-116); ANION GAP 14 mmol/L (5-15); ASPARTATE AMINO TRANSFERASE 25 U/L (15-37); BILIRUBIN,TOTAL 0.7 MG/DL (0.2-1.0); BLOOD UREA NITROGEN 9 mg/dL (7-18); CALCIUM 9.1 MG/DL (8.5-10.1); CARBON DIOXIDE 23 MMOL/L (21-32); CHLORIDE 101 MMOL/L (98-107); CREATININE 0.8 MG/DL (0.55-1.30); POTASSIUM 4.6 MMOL/L (3.5-5.1); SODIUM 138 MMOL/L (136-145)
--- NOTE | 2020-04-18 15:00 | Diagnostic Imaging Report ---
Indication: Unexplained muscle spasms and tremors Technique: sagittal T1 fast spin echo, axial T1 and T2 FLAIR PROPELLER, axial T2 FS PROPELLER, T2* GRE, axial diffusion weighted images, post contrast axial and coronal and sagittal T1 FLAIR PROPELLER images, sagittal T2 FLAIR. ADC and exponential ADC maps generated Comparison: Findings: . No abnormal areas of restricted diffusion to suggest acute infarction. No acute hemorrhage or edema. No mass effect nor midline shift. No abnormal contrast enhancement. There is mild age-related prominence of the ventricles and extra-axial CSF spaces. Vascular flow voids are preserved. There is some periventricular deep white matter high T2 signal. Visualized orbits and sinuses are unremarkable. There is minimal mastoid disease on the right.. Impression: Minimal age-related volume loss Minimal periventricular deep white matter high T2 signal, most likely representing chronic microvascular ischemic changes Negative for acute intracranial bleed, mass effect, infarct, or contrast enhancing lesion
--- NOTE | 2020-04-18 16:28 | NUR ---
*-*DISCHARGE PLANNED*-* PATIENT HAS BEEN ACCEPTED AND WILL BE DISCHARGED BACK TO: [facility] P: [phone] FOR NURSE TO NURSE REPORT ROOM# 233.SKILLED [facility] TRANSP[facility] SET FOR S/W PLACE A CALL TO PATIENTS NEXT TO [facility], NO ANSWER LEFT VOICE MESSAGE. Addendum: 04/18/20 at 1715 by CHRISTIANO CALVERT CM DISREGARD ABOVE NOTE
--- NOTE | 2020-04-18 17:15 | NUR ---
*-*DISCHARGE PLANNING*-* PATIENT HAS BEEN ACCEPTED WITH: [facility] P: [phone] S/[facility], STATED WILL ACCEPT PATIENT UPON DISCHARGE ROOM# 14.C SKILLED ~~~~~~~~~PATIENT IS REQUESTING TEST RESULT FROM THE [facility] , ~~~~~~~~~~~
--- NOTE | 2020-04-18 17:16 | NUR ---
TRUCKER HAND NOTE CM MET WITH PATIENT AT BEDSIDE. SON ANIAT AT PATIENTS BEDSIDE. PATIENT AND SON INFORMED OF RECOMMENDATION BY MD FOR SNF PLACEMENT FOR PT REHAB. BOTH PATIENT AND SON NOT IN AGREEMENT TO SNF PLACEMENT. PATIENT INFORMED CM THAT SHE CURRENTLY DOES NOT HAVE A CAREGIVER AT HOME AND HER CHILDREN ALL WORK. PATIENT STATES SHE WAS PREVIOUSLY INPATIENT AT A SNF FOR 5 MONTHS AND HAD A BAD EXPERIENCE AND IS RELUCTANT FOR PLACEMENT AT THIS TIME. PATIENT EDUCATED ON RISKS AND BENEFITS OF SNF. BOTH PATIENT AND SON STATE THEY MAY AGREE TO SNF WHEN CM HAS SNF INFO AND THEY CAN DECIDE A FAMILY.
--- NOTE | 2020-04-18 18:52 | Cardiology Progress Note ---
Assessment/Plan Assessment/Plan 1. Left chest wall pain. 2. Leg cramps. 3. Diabetes mellitus. 4. Hypertension. 5. Diverticulosis. 6. Cervical spine and lumbar spine radiculopathy still with tenderness / pain trop relatively flat will repeat level tonite en in am duplex neg spin report noted echo reviewed personally wall motion is normal ekg form lat nite was erroneous was repeated with a different machine and was normal left rib seiez ed and sternal sereis to r/o bony lesion Subjective Cardiovascular: Reports: chest pain; Denies: lightheadedness Respiratory: Denies: shortness of breath Genitourinary: Denies: burning Subjective pain present all the tiem tnder to touch and with movmen of the left arm has pain in micheal shoudler , requesting more pain med Objective Last 24 Hour Vital Signs Date Time Temp Pulse Resp B/P (MAP) Pulse Ox O2 Delivery O2 Flow Rate FiO2 04/18/20 16:00 92 04/18/20 16:00 97.5 86 20 160/85 (110) 99 04/18/20 12:00 87 04/18/20 11:31 98.9 89 19 154/71 (98) 96 04/18/20 09:00 Room Air 04/18/20 08:13 147/73 04/18/20 08:00 91 04/18/20 07:59 98.6 8 18 147/73 (97) 96 04/18/20 06:49 133/75 (94) 04/18/20 06:05 161/76 04/18/20 06:00 161/73 (102) 04/18/20 04:00 97.9 96 20 165/70 (101) 96 04/18/20 04:00 85 04/18/20 02:49 98.9 04/18/20 02:20 105 194/98 04/18/20 00:00 98.9 115 20 157/73 (101) 97 04/18/20 00:00 86 04/17/20 23:58 194/87 04/17/20 21:00 Room Air 04/17/20 20:00 77 04/17/20 20:00 98.3 113 20 167/81 (109) 97 General Appearance: no apparent distress, alert Neck: supple Cardiovascular: normal rate Respiratory/Chest: lungs clear Abdomen: normal bowel sounds, non tender, soft Extremities: no swelling Intake and Output 04/17/20 04/18/20 19:00 07:00 Intake Total 360 ml Output Total 600 ml Balance -240 ml Intake Oral 360 ml Output Urine Total 600 ml # Voids 2 Laboratory Tests Test 04/18/20 05:44 04/18/20 11:11 04/18/20 16:11 Sodium Level 138 MMOL/L (136-145) Potassium Level 4.6 MMOL/L (3.5-5.1) Chloride Level 101 MMOL/L (98-107) Carbon Dioxide Level 23 MMOL/L (21-32) Anion Gap 14 mmol/L (5-15) Blood Urea Nitrogen 9 mg/dL (7-18) Creatinine 0.8 MG/DL (0.55-1.30) Estimat Glomerular Filtration Rate > 60 mL/min (>60) Glucose Level 276 MG/DL (74-106) H Calcium Level 9.1 MG/DL (8.5-10.1) Total Bilirubin 0.7 MG/DL (0.2-1.0) Aspartate Amino Transf (AST/SGOT) 25 U/L (15-37) Alanine Aminotransferase (ALT/SGPT) 27 U/L (12-78) Alkaline Phosphatase 64 U/L (46-116) Troponin I 0.167 ng/mL (0.000-0.056) Total Protein 7.8 G/DL (6.4-8.2) Albumin 3.6 G/DL (3.4-5.0) Globulin 4.2 g/dL Albumin/Globulin Ratio 0.9 (1.0-2.7) L POC Whole Blood Glucose Pending Pending Steven Andrews MD Apr 18, 2020 18:52
--- NOTE | 2020-04-18 19:26 | NUR ---
HAND-OFF: Report given to Gian BAH.
--- NOTE | 2020-04-18 19:48 | NUR ---
NURSE NOTES: Received report from Teto/Anastasiya RN. Patient is on bed, alert, awake and oriented x 4. On consistent card (Low), instructed and amenable. On room air with no desaturation reported. carpenter streetcar is in placed, shows sinus rhythm and no chest pain at this time. IV site is on right AC G-20 saline lock that is patent and intact. On fall precaution, Safety measurers are in placed, bed in lowest and locked position, call light button and bedside table is within reach, instructed to call for any assistance needed. Will continue plan of care.
[2020-04-18] MEDS: methylPREDNISolone 8mg QHS ORAL SCH (21:01)
[2020-04-18] MEDS: Morphine Sulfate 2mg/ml Inj(IV/IM USE ONLY) IVP PRN (21:53)
[2020-04-19] VITALS: BP 151/70
[2020-04-19] MEDS: Morphine Sulfate 2mg/ml Inj(IV/IM USE ONLY) IVP PRN (01:58)
[2020-04-19 04:00] VITALS: BP 161/51
[2020-04-19] MEDS: Morphine Sulfate 4mg/ml Inj (IV USE ONLY) IVP PRN ×3 (05:03→20:22)
[2020-04-19] MEDS: HydrALAZINE 25mg tab ORAL PRN (05:04)
[2020-04-19] MEDS: NovoLOG Insulin Flexpen SUBQ SCH ×4 (06:04→20:35)
[2020-04-19] MEDS: methylPREDNISolone 4mg QAC ORAL SCH (06:06)
[2020-04-19 06:09] LABS: ANION GAP 10 mmol/L (5-15); BLOOD UREA NITROGEN 17 mg/dL (7-18); CALCIUM 9.1 MG/DL (8.5-10.1); CARBON DIOXIDE 25 MMOL/L (21-32); CHLORIDE 100 MMOL/L (98-107); POTASSIUM 4.6 MMOL/L (3.5-5.1); SODIUM 135 MMOL/L (136-145)
--- NOTE | 2020-04-19 07:27 | NUR ---
HAND-OFF: Report given to OLVIN Irene. Patient is awake, on bed. On stable condition, with no complaints made at this time. Plan of care endorsed.
[2020-04-19 08:00] VITALS: BP 166/73
[2020-04-19] MEDS: Enalapril 5mg tab ORAL SCH (08:47)
[2020-04-19] MEDS: Aspirin Baby 81mg NG SCH (08:47)
[2020-04-19] MEDS: Cyclobenzaprine 10mg Tab ORAL SCH ×3 (08:47→17:10)
[2020-04-19] MEDS: Enoxaparin 40mg Inj SUBQ SCH (08:55)
--- NOTE | 2020-04-19 09:51 | Diagnostic Imaging Report ---
EXAM: XR Left Ribs, 2 Views CLINICAL HISTORY: PAIN TECHNIQUE: Frontal and oblique views of the left ribs. COMPARISON: No relevant prior studies available. FINDINGS: Lungs: Unremarkable as visualized. No consolidation. Pleural space: No pleural effusions or pneumothorax. Bones/joints: Generalized osteopenia. No acute fracture. IMPRESSION: No radiographic evidence of acute fracture.
--- NOTE | 2020-04-19 10:11 | Diagnostic Imaging Report ---
EXAM: XR Sternum, 2 Views CLINICAL HISTORY: PAIN TECHNIQUE: Lateral and oblique views of the sternum. COMPARISON: No relevant prior studies available. FINDINGS: Bones/joints: Unremarkable. No acute fracture. Soft tissues: Unremarkable. IMPRESSION: No definite abnormality in the visualized portions. If there is point tenderness, CT exam may further evaluate.
[2020-04-19 12:00] VITALS: BP 147/71
--- NOTE | 2020-04-19 12:21 | Pulmonology Progress Note ---
Subjective ROS Limited/Unobtainable: No Interval Events: c/o cramps in legs Allergies: Coded Allergies: No Known Allergies (Verified , 03/24/11) All Systems: reviewed and negative except above - leg spasms Objective Last 24 Hour Vital Signs Date Time Temp Pulse Resp B/P (MAP) Pulse Ox O2 Delivery O2 Flow Rate FiO2 04/19/20 09:00 Room Air 04/19/20 08:47 90 166/73 04/19/20 08:47 166/73 04/19/20 08:00 97.5 90 20 166/73 (104) 99 04/19/20 05:04 161/51 04/19/20 04:00 98.9 83 20 161/51 (87) 95 04/19/20 04:00 74 04/19/20 00:00 98.9 86 18 151/70 (97) 98 04/19/20 00:00 87 04/18/20 21:00 Room Air 04/18/20 20:00 99 04/18/20 20:00 98.4 93 20 148/82 (104) 99 04/18/20 16:00 92 04/18/20 16:00 97.5 86 20 160/85 (110) 99 Intake and Output 04/18/20 04/19/20 19:00 07:00 Intake Total 140 ml 400 ml Output Total 1200 ml 980 ml Balance -1060 ml -580 ml Intake Oral 140 ml 400 ml Output Urine Total 1200 ml 980 ml # Voids 3 General Appearance: WD/WN HEENT: normocephalic, atraumatic Respiratory: chest wall non-tender, lungs clear Breasts: no masses Cardiovascular: normal rate Abdomen: normal bowel sounds, soft, non tender, no organomegaly, non distended Genitourinary: normal external genitalia Extremities: no cyanosis Laboratory Tests 04/18/20 16:11: POC Whole Blood Glucose [Pending] 04/19/20 05:00: Sodium Level 135L, Potassium Level 4.6, Chloride Level 100, Carbon Dioxide Level 25, Anion Gap 10, Blood Urea Nitrogen 17, Creatinine 1.0, Estimat Glomerular Filtration Rate > 60, Glucose Level 374H, Calcium Level 9.1, Magnesium Level 2.0 Current Medications Medications (Trade) Dose Ordered Sig/Ranjeet Route PRN Reason Start Time Stop Time Status Last Admin Dose Admin Acetaminophen (Tylenol) 650 mg Q4H PRN ORAL Mild Pain (Pain Scale 1-3) 04/16/20 02:30 05/16/20 02:29 Amlodipine Besylate (Norvasc) 5 mg DAILY ORAL 04/19/20 09:00 05/19/20 08:59 04/19/20 08:47 Aspirin (ASA) 81 mg DAILY NG 04/16/20 12:30 05/31/20 12:29 04/19/20 08:47 Cyclobenzaprine HCl (Flexeril) 10 mg THREE TIMES A DAY ORAL 04/17/20 22:15 05/17/20 22:14 04/19/20 08:47 Dextrose (Dextrose 50%) 25 ml Q30M PRN IV Hypoglycemia 04/16/20 04:30 07/15/20 04:29 Dextrose (Dextrose 50%) 50 ml Q30M PRN IV Hypoglycemia 04/16/20 04:30 07/15/20 04:29 Enalapril Maleate (Vasotec) 10 mg DAILY ORAL 04/16/20 12:15 05/16/20 12:14 04/19/20 08:47 Enoxaparin Sodium (Lovenox) 40 mg Q24H SUBQ 04/16/20 09:00 07/15/20 08:59 04/19/20 08:55 Gadobutrol (Gadavist) 7.5 mmol NOW PRN IV Radiology Procedure 04/17/20 15:30 04/21/20 15:23 Hydralazine HCl (Apresoline) 25 mg Q6H PRN ORAL For High Blood Pressure 04/16/20 04:30 07/15/20 04:29 04/19/20 05:04 Insulin Aspart (NovoLOG) BEFORE MEALS AND HS SUBQ 04/16/20 06:30 07/15/20 06:29 04/19/20 06:04 Methylprednisolone (Medrol) 4 mg ACBREAKFAST ORAL 04/18/20 06:30 04/22/20 08:30 04/19/20 06:06 Methylprednisolone (Medrol) 4 mg Q24H ORAL 04/20/20 12:30 04/20/20 13:00 Methylprednisolone (Medrol) 4 mg QHS ORAL 04/19/20 21:00 04/21/20 22:00 Morphine Sulfate (Morphine Sulfate) 1 mg Q4H PRN IVP Moderate Pain (Pain Scale 4-6) 04/16/20 02:30 04/23/20 02:29 04/19/20 01:58 Morphine Sulfate (Morphine Sulfate) 4 mg Q4H PRN IVP Severe Pain (Pain Scale 7-10) 04/16/20 02:30 04/23/20 02:29 04/19/20 05:03 Ondansetron HCl (Zofran) 4 mg Q6H PRN IVP Nausea & Vomiting 04/16/20 02:30 05/16/20 02:29 Polyethylene Glycol (Miralax) 17 gm HSPRN PRN ORAL Constipation 04/16/20 02:30 05/16/20 02:29 Assessment/Plan Problems: (1) ACS (acute coronary syndrome) (2) History of diabetes mellitus (3) History of TIAs (4) History of hypertension Assessment/Plan all films reviewed, no rib fractures were seen . Echo reviewed BP remains borderline high adjust cardiac med symptomatic treatment f/u cardiology recommendation. dvt prophylaxis sliding scale Milad Scruggs MD Apr 19, 2020 12:21
--- NOTE | 2020-04-19 13:18 | Cardiology Progress Note ---
Assessment/Plan Assessment/Plan 1. Left chest wall pain. 2. Leg cramps. 3. Diabetes mellitus. 4. Hypertension. 5. Diverticulosis. 6. Cervical spine and lumbar spine radiculopathy still with tenderness / pain trop relatively flat will repeat level tonite en in am duplex neg spin report noted echo reviewed personally wall motion is normal xrayof rib and sternum no fx Subjective Cardiovascular: Reports: chest pain Subjective tenderness now better as of today Objective Last 24 Hour Vital Signs Date Time Temp Pulse Resp B/P (MAP) Pulse Ox O2 Delivery O2 Flow Rate FiO2 04/19/20 09:00 Room Air 04/19/20 08:47 90 166/73 04/19/20 08:47 166/73 04/19/20 08:00 97.5 90 20 166/73 (104) 99 04/19/20 05:04 161/51 04/19/20 04:00 98.9 83 20 161/51 (87) 95 04/19/20 04:00 74 04/19/20 00:00 98.9 86 18 151/70 (97) 98 04/19/20 00:00 87 04/18/20 21:00 Room Air 04/18/20 20:00 99 04/18/20 20:00 98.4 93 20 148/82 (104) 99 04/18/20 16:00 92 04/18/20 16:00 97.5 86 20 160/85 (110) 99 General Appearance: no apparent distress, obese, patient on isolation, isolation precautions Intake and Output 04/18/20 04/19/20 19:00 07:00 Intake Total 140 ml 400 ml Output Total 1200 ml 980 ml Balance -1060 ml -580 ml Intake Oral 140 ml 400 ml Output Urine Total 1200 ml 980 ml # Voids 3 Laboratory Tests Test 04/18/20 16:11 04/19/20 05:00 POC Whole Blood Glucose Pending Sodium Level 135 MMOL/L (136-145) L Potassium Level 4.6 MMOL/L (3.5-5.1) Chloride Level 100 MMOL/L (98-107) Carbon Dioxide Level 25 MMOL/L (21-32) Anion Gap 10 mmol/L (5-15) Blood Urea Nitrogen 17 mg/dL (7-18) Creatinine 1.0 MG/DL (0.55-1.30) Estimat Glomerular Filtration Rate > 60 mL/min (>60) Glucose Level 374 MG/DL (74-106) H Calcium Level 9.1 MG/DL (8.5-10.1) Magnesium Level 2.0 MG/DL (1.8-2.4) Steven Andrews MD Apr 19, 2020 13:18
--- NOTE | 2020-04-19 13:28 | NUR ---
CASE MANAGEMENT: REVIEW 04/19/2020 SI:Left chest wall pain. VS: T 97.5 HR 90 RR 20 B/P 166/73 SATS 99% ON RA LABS; NA 135 GLU 374 IS:MEDROL PO QAM VASOTEC PO QD ASA NG QD NORVASC PO QD INSULIN ASPART SUBQ AC/HS TELE PLAN OF CARE: adjust cardiac med symptomatic treatment
--- NOTE | 2020-04-19 14:02 | Internal Med Progress Note ---
Subjective Physician Name Lion Alvares Attending Physician Lion Alvares MD Current Medications Medications (Trade) Dose Ordered Sig/Ranjeet Route PRN Reason Start Time Stop Time Status Last Admin Dose Admin Acetaminophen (Tylenol) 650 mg Q4H PRN ORAL Mild Pain (Pain Scale 1-3) 04/16/20 02:30 05/16/20 02:29 Amlodipine Besylate (Norvasc) 5 mg DAILY ORAL 04/19/20 09:00 05/19/20 08:59 04/19/20 08:47 Aspirin (ASA) 81 mg DAILY NG 04/16/20 12:30 05/31/20 12:29 04/19/20 08:47 Cyclobenzaprine HCl (Flexeril) 10 mg THREE TIMES A DAY ORAL 04/17/20 22:15 05/17/20 22:14 04/19/20 13:10 Dextrose (Dextrose 50%) 25 ml Q30M PRN IV Hypoglycemia 04/16/20 04:30 07/15/20 04:29 Dextrose (Dextrose 50%) 50 ml Q30M PRN IV Hypoglycemia 04/16/20 04:30 07/15/20 04:29 Enalapril Maleate (Vasotec) 10 mg DAILY ORAL 04/16/20 12:15 05/16/20 12:14 04/19/20 08:47 Enoxaparin Sodium (Lovenox) 40 mg Q24H SUBQ 04/16/20 09:00 07/15/20 08:59 04/19/20 08:55 Gadobutrol (Gadavist) 7.5 mmol NOW PRN IV Radiology Procedure 04/17/20 15:30 04/21/20 15:23 Hydralazine HCl (Apresoline) 25 mg Q6H PRN ORAL For High Blood Pressure 04/16/20 04:30 07/15/20 04:29 04/19/20 05:04 Insulin Aspart (NovoLOG) BEFORE MEALS AND HS SUBQ 04/16/20 06:30 07/15/20 06:29 04/19/20 06:04 Methylprednisolone (Medrol) 4 mg ACBREAKFAST ORAL 04/18/20 06:30 04/22/20 08:30 04/19/20 06:06 Methylprednisolone (Medrol) 4 mg Q24H ORAL 04/20/20 12:30 04/20/20 13:00 Methylprednisolone (Medrol) 4 mg QHS ORAL 04/19/20 21:00 04/21/20 22:00 Morphine Sulfate (Morphine Sulfate) 1 mg Q4H PRN IVP Moderate Pain (Pain Scale 4-6) 04/16/20 02:30 04/23/20 02:29 04/19/20 01:58 Morphine Sulfate (Morphine Sulfate) 4 mg Q4H PRN IVP Severe Pain (Pain Scale 7-10) 04/16/20 02:30 04/23/20 02:29 04/19/20 13:11 Ondansetron HCl (Zofran) 4 mg Q6H PRN IVP Nausea & Vomiting 04/16/20 02:30 05/16/20 02:29 Polyethylene Glycol (Miralax) 17 gm HSPRN PRN ORAL Constipation 04/16/20 02:30 05/16/20 02:29 Allergies: Coded Allergies: No Known Allergies (Verified , 03/24/11) Subjective awake, alert, rersponsive, No CP or SOB, C/O lower extremities weakness and unable to ambulate. Objective Last Vital Signs Date Time Temp Pulse Resp B/P (MAP) Pulse Ox O2 Delivery O2 Flow Rate FiO2 04/19/20 13:50 97.5 04/19/20 09:00 Room Air 04/19/20 08:47 90 166/73 04/19/20 08:00 20 99 Laboratory Tests Test 04/18/20 16:11 04/19/20 05:00 POC Whole Blood Glucose Pending Sodium Level 135 MMOL/L (136-145) L Potassium Level 4.6 MMOL/L (3.5-5.1) Chloride Level 100 MMOL/L (98-107) Carbon Dioxide Level 25 MMOL/L (21-32) Anion Gap 10 mmol/L (5-15) Blood Urea Nitrogen 17 mg/dL (7-18) Creatinine 1.0 MG/DL (0.55-1.30) Estimat Glomerular Filtration Rate > 60 mL/min (>60) Glucose Level 374 MG/DL (74-106) H Calcium Level 9.1 MG/DL (8.5-10.1) Magnesium Level 2.0 MG/DL (1.8-2.4) Intake and Output 04/18/20 04/19/20 19:00 07:00 Intake Total 140 ml 400 ml Output Total 1200 ml 980 ml Balance -1060 ml -580 ml Intake Oral 140 ml 400 ml Output Urine Total 1200 ml 980 ml # Voids 3 Objective General: No acute distress, awake and alert HEENT: NCAT, sclera anicteric, PERRL, EOMI. Neck: Supple, no significant jugular venous distention, Lungs: Fair inspiratory effort, clear to auscultation bilaterally, no Wheeze or Rales. Heart: Regular rate and rhythm, normal S1/S2, no murmurs, distant heart sound. Abdomen: soft, nontender, nondistended. Normoactive bowel sounds, Morbid obesity. Extremities: No Cyanosis , clubbing or edema. Neuro: A&O x 3, Able to move all extremities, Left side weaker than right side. Psych: Normal mood and affect Assessment/Plan Assessment/Plan 1. Lumbar pain 2/2 severe left and moderate right foraminal narrowing with abutment of the exiting left L5 nerve root 2. Chest pain with intermediate troponin. 3. Diabetes. 4. Hypertension. 5. History of trigeminal neuralgia. 6. Hemochromatosis. PLAN: 1. In Telemetry. 2. Cardiology consult. 3. Neurology consult. 4. Flexeril 10 mg p.o. TID 5. MRI of spine (C/T/L) - shows severe left and moderate right foraminal narrowing with abutment of the exiting left L5 nerve root 6. PT evaluation 7. On aspirin. 8. Full code. 9. DVT prophylaxis: Lovenox SQ 10. trial of Decadron taper Lion Alvares MD Apr 19, 2020 14:02
[2020-04-19 16:00] VITALS: BP 155/79
--- NOTE | 2020-04-19 19:30 | NUR ---
NURSE NOTES: Received report from Teto Redding RN. Pt in bed, alert, denies pain at this time. Call light within reach with instructions to use if assistance is needed, pt verbalized understanding. Will continue plan of care and close monitoring.
[2020-04-19 20:00] VITALS: BP 147/78
[2020-04-19] MEDS ORDERED: methylPREDNISolone 4mg QHS ORAL SCH (21:00)
[2020-04-20] VITALS: BP 137/76
[2020-04-20] MEDS: Morphine Sulfate 4mg/ml Inj (IV USE ONLY) IVP PRN ×4 (00:50→23:41)
[2020-04-20 04:00] VITALS: BP 136/75
[2020-04-20] MEDS: methylPREDNISolone 4mg QAC ORAL SCH (05:57)
[2020-04-20] MEDS: NovoLOG Insulin Flexpen SUBQ SCH ×5 (06:49→20:57)
--- NOTE | 2020-04-20 07:11 | NUR ---
HAND-OFF: Report given to Chelsea Branch RN. Pt denies pain at this time; in stable condition. Plan of care endorsed.
--- NOTE | 2020-04-20 07:35 | NUR ---
NURSE NOTES: RECEIVED PATIENT IN BED RESTING COMFORTABLY. AWAKE, ALERT/ORIENTED X4, ON O2 2L VIA NC. ABLE TO MAKE NEEDS KNOWN, DENIES PAIN/DISCOMFORT NOTED. NO SIGNS AND SYMPTOMS OF ACUTE CARDIO-RESPIRATORY DISTRESS/SHORTNESS OF BREATH, DENIES CHEST PAIN. VERBALIZED UNDERSTANDING. IV INTACT TO RIGHT AC 20G, SALINE LOCK, NO REDNESS/SWELLING NOTED. NO N/V/D. SAFETY MAINTAINED. SIDE RAILS UP X3 FOR MOBILITY, BED IN LOWEST POSITION FOR SAFETY, ENCOURAGED PATIENT TO UTILIZE CALL LIGHT FOR ASSISTANCE, VERBALIZED UNDERSTANDING. BED BRAKES ENGAGED AND LOCKED @ ALL TIMES. CONTINUE WITH CURRENT PLAN OF CARE.
[2020-04-20 08:00] VITALS: BP 146/83
--- NOTE | 2020-04-20 08:24 | Pulmonology Progress Note ---
Subjective ROS Limited/Unobtainable: No Interval Events: c/o cramps in legs Allergies: Coded Allergies: No Known Allergies (Verified , 03/24/11) All Systems: reviewed and negative except above - leg spasms Subjective CP resolved tele NGT/ SR some SOB, no cough pain overall controlled Objective Last 24 Hour Vital Signs Date Time Temp Pulse Resp B/P (MAP) Pulse Ox O2 Delivery O2 Flow Rate FiO2 04/20/20 06:27 97.5 04/20/20 04:00 97.5 86 20 136/75 (95) 98 04/20/20 04:00 97 04/20/20 00:00 97.5 86 20 137/76 (96) 96 04/20/20 00:00 85 04/19/20 21:00 Room Air 04/19/20 20:00 103 04/19/20 20:00 96.6 99 20 147/78 (101) 98 04/19/20 16:00 92 04/19/20 16:00 97.5 99 20 155/79 (104) 98 04/19/20 12:00 97.5 85 20 147/71 (96) 99 04/19/20 12:00 89 04/19/20 09:00 Room Air 04/19/20 08:47 90 166/73 04/19/20 08:47 166/73 Intake and Output 04/19/20 04/20/20 19:00 07:00 Intake Total 400 ml 500 ml Output Total 800 ml 700 ml Balance -400 ml -200 ml Intake Oral 400 ml 500 ml Output Urine Total 800 ml 700 ml # Voids 1 General Appearance: WD/WN HEENT: normocephalic, atraumatic, PERRL, supple Respiratory: chest wall non-tender, lungs clear Cardiovascular: normal rate Abdomen: normal bowel sounds, soft, non tender, non distended Extremities: no edema, pedal pulses normal Neurologic: alert, oriented x 3, responsive Musculoskeletal: normal muscle bulk Laboratory Tests 04/19/20 20:29: POC Whole Blood Glucose [Pending] 04/20/20 06:08: POC Whole Blood Glucose 368H Current Medications Medications (Trade) Dose Ordered Sig/Ranjeet Route PRN Reason Start Time Stop Time Status Last Admin Dose Admin Acetaminophen (Tylenol) 650 mg Q4H PRN ORAL Mild Pain (Pain Scale 1-3) 04/16/20 02:30 7/30/20 02:29 Amlodipine Besylate (Norvasc) 5 mg DAILY ORAL 04/19/20 09:00 05/19/20 08:59 04/19/20 08:47 Aspirin (ASA) 81 mg DAILY NG 04/16/20 12:30 05/31/20 12:29 04/19/20 08:47 Cyclobenzaprine HCl (Flexeril) 10 mg THREE TIMES A DAY ORAL 04/17/20 22:15 05/17/20 22:14 04/19/20 17:10 Dextrose (Dextrose 50%) 25 ml Q30M PRN IV Hypoglycemia 04/16/20 04:30 07/15/20 04:29 Dextrose (Dextrose 50%) 50 ml Q30M PRN IV Hypoglycemia 04/16/20 04:30 07/15/20 04:29 Enalapril Maleate (Vasotec) 10 mg DAILY ORAL 04/16/20 12:15 05/16/20 12:14 04/19/20 08:47 Enoxaparin Sodium (Lovenox) 40 mg Q24H SUBQ 04/16/20 09:00 07/15/20 08:59 04/19/20 08:55 Gadobutrol (Gadavist) 7.5 mmol NOW PRN IV Radiology Procedure 04/17/20 15:30 04/21/20 15:23 Hydralazine HCl (Apresoline) 25 mg Q6H PRN ORAL For High Blood Pressure 04/16/20 04:30 07/15/20 04:29 04/19/20 05:04 Insulin Aspart (NovoLOG) BEFORE MEALS AND HS SUBQ 04/16/20 06:30 07/15/20 06:29 04/20/20 06:49 Methylprednisolone (Medrol) 4 mg ACBREAKFAST ORAL 04/18/20 06:30 04/22/20 08:30 04/20/20 05:57 Methylprednisolone (Medrol) 4 mg Q24H ORAL 04/20/20 12:30 04/20/20 13:00 Methylprednisolone (Medrol) 4 mg QHS ORAL 04/19/20 21:00 04/21/20 22:00 04/19/20 20:21 Morphine Sulfate (Morphine Sulfate) 1 mg Q4H PRN IVP Moderate Pain (Pain Scale 4-6) 04/16/20 02:30 04/23/20 02:29 04/19/20 01:58 Morphine Sulfate (Morphine Sulfate) 4 mg Q4H PRN IVP Severe Pain (Pain Scale 7-10) 04/16/20 02:30 04/23/20 02:29 04/20/20 05:57 Ondansetron HCl (Zofran) 4 mg Q6H PRN IVP Nausea & Vomiting 04/16/20 02:30 05/16/20 02:29 Polyethylene Glycol (Miralax) 17 gm HSPRN PRN ORAL Constipation 04/16/20 02:30 05/16/20 02:29 Assessment/Plan Assessment/Plan ASSESSMENT Chest wall pain Elevated troponin, Leg cramps Hypertension Diabetes mellitus Lumbar pain due to lumbar spine radiculopathy History of TIA Positive GER PLAN OF CARE telemetry serial troponin with minimal elevation EKG no acute ischemic changes Echo with pEF 65-70%, mild LVH, no evidence of WMA Venous duplex-> no evidence of DVT DVT prophylaxis with Lovenox O2 PRN titrate to keep sat above 90% pulmonary toilet prn pulse ox remained stable on RA all imaging noted ribs x-ray and sternum x-ray ->no evidence of fracture ; no definite abnormality MRI of the brain-> with chronic microvascular ischemic changes , no evidence of acute IC abnormality MRI of C-spine -> no acute abnormality, mild to moderate degenerative changes MRI of T spine -> no acute abnormality, minimal degenerative changes MRI of L-spine ->multiply level discogenic degenerative disease, progressed slightly from prior exam; severe left and moderate right foraminal narrowing with abutment of the exiting left L5 nerve root started on steroid pulse with tapering neuro eval GER+ FTA and RPR NGT pain management fall precaution PT eval and RX BP management with CCB continue aspirin BS management with SSI supportive care bowel regimen case discussed and evaluated by supervising physician Narcisa Partida NP Apr 20, 2020 08:24
[2020-04-20] MEDS: Aspirin Baby 81mg NG SCH (08:41)
[2020-04-20] MEDS: Cyclobenzaprine 10mg Tab ORAL SCH ×3 (08:41→17:08)
[2020-04-20] MEDS: Enalapril 5mg tab ORAL SCH (08:42)
[2020-04-20] MEDS: Enoxaparin 40mg Inj SUBQ SCH (08:44)
[2020-04-20 12:08] VITALS: BP 126/67
[2020-04-20] MEDS ORDERED: methylPREDNISolone 4mg after lunch ORAL SCH (12:30)
--- NOTE | 2020-04-20 15:00 | NUR ---
NURSE NOTES: NOTIFIED DR MUELLER FOR THE MEDROL RENEWAL. WILL CONT TO MONITOR.
--- NOTE | 2020-04-20 15:41 | Internal Med Progress Note ---
Subjective Date of Service: Apr 20, 2020 Physician Name SaniaCruz Attending Physician Lion Alvares MD Current Medications Medications (Trade) Dose Ordered Sig/Ranjeet Route PRN Reason Start Time Stop Time Status Last Admin Dose Admin Acetaminophen (Tylenol) 650 mg Q4H PRN ORAL Mild Pain (Pain Scale 1-3) 04/16/20 02:30 05/16/20 02:29 Amlodipine Besylate (Norvasc) 5 mg DAILY ORAL 04/19/20 09:00 05/19/20 08:59 04/20/20 08:41 Aspirin (ASA) 81 mg DAILY NG 04/16/20 12:30 05/31/20 12:29 04/20/20 08:41 Cyclobenzaprine HCl (Flexeril) 10 mg THREE TIMES A DAY ORAL 04/17/20 22:15 05/17/20 22:14 04/20/20 12:13 Dextrose (Dextrose 50%) 25 ml Q30M PRN IV Hypoglycemia 04/20/20 15:30 07/19/20 15:29 Dextrose (Dextrose 50%) 50 ml Q30M PRN IV Hypoglycemia 04/20/20 15:30 07/19/20 15:29 Enalapril Maleate (Vasotec) 10 mg DAILY ORAL 04/16/20 12:15 05/16/20 12:14 04/20/20 08:42 Enoxaparin Sodium (Lovenox) 40 mg Q24H SUBQ 04/16/20 09:00 07/15/20 08:59 04/20/20 08:44 Gadobutrol (Gadavist) 7.5 mmol NOW PRN IV Radiology Procedure 04/17/20 15:30 04/21/20 15:23 Hydralazine HCl (Apresoline) 25 mg Q6H PRN ORAL For High Blood Pressure 04/16/20 04:30 07/15/20 04:29 04/19/20 05:04 Insulin Aspart (NovoLOG) BEFORE MEALS AND HS SUBQ 04/16/20 06:30 07/15/20 06:29 04/20/20 12:00 Insulin Aspart (NovoLOG) 10 units NOVOTIAC SUBQ 04/20/20 16:50 07/19/20 16:49 Insulin Detemir (Levemir) 30 units BEDTIME SUBQ 04/20/20 21:00 07/19/20 20:59 Methylprednisolone (Medrol) 4 mg ACBREAKFAST ORAL 04/18/20 06:30 04/22/20 08:30 04/20/20 05:57 Methylprednisolone (Medrol) 4 mg QHS ORAL 04/19/20 21:00 04/21/20 22:00 04/19/20 20:21 Morphine Sulfate (Morphine Sulfate) 1 mg Q4H PRN IVP Moderate Pain (Pain Scale 4-6) 04/16/20 02:30 04/23/20 02:29 04/19/20 01:58 Morphine Sulfate (Morphine Sulfate) 4 mg Q4H PRN IVP Severe Pain (Pain Scale 7-10) 04/16/20 02:30 04/23/20 02:29 04/20/20 05:57 Ondansetron HCl (Zofran) 4 mg Q6H PRN IVP Nausea & Vomiting 04/16/20 02:30 05/16/20 02:29 Polyethylene Glycol (Miralax) 17 gm HSPRN PRN ORAL Constipation 04/16/20 02:30 05/16/20 02:29 Allergies: Coded Allergies: No Known Allergies (Verified , 03/24/11) ROS Limited/Unobtainable: No Constitutional: Reports: no symptoms HEENT: Reports: no symptoms Cardiovascular: Reports: no symptoms Respiratory: Reports: no symptoms Gastrointestinal/Abdominal: Reports: no symptoms Genitourinary: Reports: no symptoms Neurologic/Psychiatric: Reports: no symptoms Subjective 64 YO F admitted with back pain. Now lumbar stenosis. Cover for Int Med-Dr Tim Objective Last Vital Signs Date Time Temp Pulse Resp B/P (MAP) Pulse Ox O2 Delivery O2 Flow Rate FiO2 04/20/20 12:08 97.7 80 18 126/67 (86) 100 04/20/20 09:00 Room Air Laboratory Tests Test 04/19/20 20:29 04/20/20 06:08 POC Whole Blood Glucose Pending 368 MG/DL (74-106) H Microbiology Date/Time Source Procedure Growth Status 04/18/20 18:00 Nasopharynx Coronavirus COVID-19 PCR ([facility]) - Final Complete Intake and Output 04/19/20 04/20/20 19:00 07:00 Intake Total 400 ml 500 ml Output Total 800 ml 700 ml Balance -400 ml -200 ml Intake Oral 400 ml 500 ml Output Urine Total 800 ml 700 ml # Voids 1 Objective Objective General: No acute distress, awake and alert HEENT: NCAT, sclera anicteric, PERRL, EOMI. Neck: Supple, no significant jugular venous distention, Lungs: Fair inspiratory effort, clear to auscultation bilaterally, no Wheeze or Rales. Heart: Regular rate and rhythm, normal S1/S2, no murmurs, distant heart sound. Abdomen: soft, nontender, nondistended. Normoactive bowel sounds, Morbid obesity. Extremities: No Cyanosis , clubbing or edema. Neuro: A&O x 3, Able to move all extremities, Left side weaker than right side. Psych: Normal mood and affect Assessment/Plan Assessment/Plan Assessment/Plan Assessment/Plan 1. Lumbar pain 2/2 severe left and moderate right foraminal narrowing with abutment of the exiting left L5 nerve root 2. Chest pain with intermediate troponin. 3. Diabetes. 4. Hypertension. 5. History of trigeminal neuralgia. 6. Hemochromatosis. PLAN: 1. In Telemetry. 2. Cardiology consult. 3. Neurology consult. 4. Flexeril 10 mg p.o. TID 5. MRI of spine (C/T/L) - shows severe left and moderate right foraminal narrowing with abutment of the exiting left L5 nerve root 6. PT evaluation 7. On aspirin. 8. Full code. 9. DVT prophylaxis: Lovenox SQ 10. trial of Decadron taper Cruz Lui MD Apr 20, 2020 15:41
[2020-04-20 16:03] VITALS: BP 146/72
--- NOTE | 2020-04-20 16:54 | Cardiology Progress Note ---
Assessment/Plan Assessment/Plan no new cardiac symptoms, sinsu rhythm on telemetry Subjective Subjective The patient does not have any cardiac complaints, feels hot, but denies chills Objective Last 24 Hour Vital Signs Date Time Temp Pulse Resp B/P (MAP) Pulse Ox O2 Delivery O2 Flow Rate FiO2 04/20/20 16:03 79 04/20/20 16:03 97.7 94 18 146/72 (96) 100 04/20/20 12:08 97.7 80 18 126/67 (86) 100 04/20/20 12:00 84 04/20/20 09:00 Room Air 04/20/20 08:42 146/83 04/20/20 08:41 103 146/83 04/20/20 08:00 97.8 103 21 146/83 (104) 99 04/20/20 08:00 78 04/20/20 06:27 97.5 04/20/20 04:00 97.5 86 20 136/75 (95) 98 04/20/20 04:00 97 04/20/20 00:00 97.5 86 20 137/76 (96) 96 04/20/20 00:00 85 04/19/20 21:00 Room Air 04/19/20 20:00 103 04/19/20 20:00 96.6 99 20 147/78 (101) 98 General Appearance: no apparent distress EENT: PERRL/EOMI Neck: no JVD Rhythm: NSR Cardiovascular: regular rhythm Respiratory/Chest: rhonchi - bilaterally Abdomen: no organomegaly Intake and Output 04/19/20 04/20/20 19:00 07:00 Intake Total 400 ml 500 ml Output Total 800 ml 700 ml Balance -400 ml -200 ml Intake Oral 400 ml 500 ml Output Urine Total 800 ml 700 ml # Voids 1 Laboratory Tests Test 04/19/20 20:29 04/20/20 06:08 04/20/20 15:40 POC Whole Blood Glucose Pending 368 MG/DL (74-106) H Hemoglobin A1c 9.3 % (4.3-6.0) H Microbiology Date/Time Source Procedure Growth Status 04/18/20 18:00 Nasopharynx Coronavirus COVID-19 PCR ([facility]) - Final Complete Brianne Hilliard MD Apr 20, 2020 16:54
--- NOTE | 2020-04-20 19:10 | NUR ---
HAND-OFF: Report given to Rio.
--- NOTE | 2020-04-20 19:20 | NUR ---
NURSE NOTES: Pt. received from CHRISTOPHER Tran. Pt. AAOx4, on NC 2L, no signs of respiratory distress, and no complaints of pain at this time. IV right AC 20g intact and patent, saline locked. Bed low and locked, side rails x3 up, bed alarm active, and call light in reach.
[2020-04-20 20:00] VITALS: BP 156/80
[2020-04-20] MEDS ORDERED: Levemir Flexpen SUBQ SCH (21:00)
[2020-04-21] VITALS: BP 157/77
--- NOTE | 2020-04-21 01:00 | Consultation ---
DATE OF CONSULTATION: 04/20/2020 ENDOCRINOLOGY CONSULTATION CONSULTING PHYSICIAN: Edison Beal MD REFERRING PHYSICIAN: Lion Alvares MD REASON FOR CONSULTATION: Diabetes management. HISTORY OF PRESENT ILLNESS: The patient is a 64-year-old female with a history of diabetes, chronic hip pain, and chronic knee pain, hereditary hemochromatosis, presented with generalized body pain and severe muscle spasm that was getting worse over the past 3 days. Also complaining of chest pain, substernal in location, radiating to the left shoulder and neck. The patient was admitted to the floor for observation and treatment. I was called to manage diabetes since the glucose is exacerbated by steroids. PAST MEDICAL HISTORY: 1. Diabetes. 2. Hypertension. 3. Hip pain. 4. Trigeminal neuralgia. 5. Hereditary hemochromatosis. PAST SURGICAL HISTORY: None. MEDICATIONS: Reviewed and reconciled. ALLERGIES TO MEDICATIONS: None. SOCIAL HISTORY: The patient is a nonsmoker. No smoking, alcohol, or drug use. REVIEW OF SYSTEMS: A 12-point review of systems was performed, and pertinent positives and negatives were mentioned in history of present illness. PHYSICAL EXAM: GENERAL: Awake and alert. VITAL SIGNS: Blood pressure is 126/67, heart rate 80, temperature 97.7, and respiratory rate 18. HEENT: Pupils are equal and reactive to light. Sclerae anicteric. NECK: No JVD. HEART: Regular. LUNGS: Clear. ABDOMEN: Positive bowel sounds. EXTREMITIES: No clubbing, cyanosis, or edema. LABORATORY VALUES: WBC 7, hemoglobin 13, hematocrit 39, and platelets of 274,000. Sodium 135, potassium 4.6, chloride 100, bicarb 25, BUN 17, and creatinine 1.0 Glucose 374. DIAGNOSES: 1. Lumbar radiculopathy with foraminal narrowing. 2. Diabetes, exacerbated by steroids. 3. Hypertension. PLAN: 1. Start Levemir 30 units at bedtime. 2. Start NovoLog 10 units before each meal. 3. NovoLog sliding scale before meals and at bedtime. 4. Hypoglycemia protocol has been ordered. 5. Further adjustment according to blood glucose values. Thank you, Dr. Alvares, for the courtesy of this consultation. Edison Beal M.D. DR: JONATHON JOB#: [id number] CC: ROBY
[2020-04-21] MEDS: Morphine Sulfate 4mg/ml Inj (IV USE ONLY) IVP PRN ×4 (03:44→18:49)
[2020-04-21 04:00] VITALS: BP 151/73
[2020-04-21] MEDS: NovoLOG Insulin Flexpen SUBQ SCH ×6 (05:50→21:27)
[2020-04-21 07:01] LABS: BASOPHILS % (AUTO) 0.6 % (0.0-2.0); EOSINOPHILS % (AUTO) 1.3 % (0.0-3.0); HEMATOCRIT 39.9 % (37.0-47.0); HEMOGLOBIN 13.2 G/DL (12.0-16.0); LYMPHOCYTES % (AUTO) 13.2 % (20.0-45.0); MEAN CORPUSCULAR VOLUME 97 FL (80-99); MONOCYTES % (AUTO) 6.3 % (1.0-10.0); NEUTROPHILS % (AUTO) 78.7 % (45.0-75.0); PLATELET COUNT 292 K/UL (150-450); RED CELL DISTRIBUTION WIDTH 11.5 % (11.6-14.8); WHITE BLOOD COUNT 8.2 K/UL (4.8-10.8)
--- NOTE | 2020-04-21 07:20 | NUR ---
HAND-OFF: Report given to OLVIN Molina. Pt. is in stable condition.
[2020-04-21 07:22] LABS: ANION GAP 8 mmol/L (5-15); BLOOD UREA NITROGEN 17 mg/dL (7-18); CALCIUM 8.9 MG/DL (8.5-10.1); CARBON DIOXIDE 28 MMOL/L (21-32); CHLORIDE 103 MMOL/L (98-107); CREATININE 0.8 MG/DL (0.55-1.30); POTASSIUM 4.4 MMOL/L (3.5-5.1); SODIUM 139 MMOL/L (136-145)
--- NOTE | 2020-04-21 07:24 | NUR ---
NURSE NOTES: Received report from Rio Batista RN. Patient sitting up in bed, watching television, awake and alert, side rails up x 3, bed low and locked, call light within reach, no c/o pain, no SOB, in no aparent disterss.
--- NOTE | 2020-04-21 07:47 | Pulmonology Progress Note ---
Subjective ROS Limited/Unobtainable: No Interval Events: c/o cramps in legs Allergies: Coded Allergies: No Known Allergies (Verified , 03/24/11) All Systems: reviewed and negative except above - leg spasms Subjective CP resolved tele NGT/ SR some SOB, no cough pain overall controlled Objective Last 24 Hour Vital Signs Date Time Temp Pulse Resp B/P (MAP) Pulse Ox O2 Delivery O2 Flow Rate FiO2 04/21/20 04:00 97.0 76 18 151/73 (99) 96 04/21/20 04:00 72 04/21/20 00:00 97.4 78 18 157/77 (103) 98 04/21/20 00:00 80 04/20/20 21:00 Nasal Cannula 2.0 04/20/20 20:00 97.9 85 18 156/80 (105) 98 04/20/20 20:00 88 04/20/20 16:03 79 04/20/20 16:03 97.7 94 18 146/72 (96) 100 04/20/20 12:08 97.7 80 18 126/67 (86) 100 04/20/20 12:00 84 04/20/20 09:00 Room Air 04/20/20 08:42 146/83 04/20/20 08:41 103 146/83 04/20/20 08:00 97.8 103 21 146/83 (104) 99 04/20/20 08:00 78 Intake and Output 04/20/20 04/21/20 19:00 07:00 Intake Total 490 ml 600 ml Output Total 850 ml 800 ml Balance -360 ml -200 ml Intake Oral 490 ml 600 ml Output Urine Total 850 ml 800 ml General Appearance: WD/WN HEENT: normocephalic, atraumatic, PERRL, supple Respiratory: chest wall non-tender, lungs clear Cardiovascular: normal rate Abdomen: normal bowel sounds, soft, non tender, non distended Extremities: no edema, pedal pulses normal Neurologic: alert, oriented x 3, responsive Musculoskeletal: normal muscle bulk Microbiology Date/Time Source Procedure Growth Status 04/18/20 18:00 Nasopharynx Coronavirus COVID-19 PCR ([facility]) - Final Complete Laboratory Tests 04/20/20 15:40: Hemoglobin A1c 9.3H 04/20/20 20:50: POC Whole Blood Glucose [Pending] 04/21/20 06:05: White Blood Count 8.2, Red Blood Count 4.10L, Hemoglobin 13.2, Hematocrit 39.9, Mean Corpuscular Volume 97, Mean Corpuscular Hemoglobin 32.1H, Mean Corpuscular Hemoglobin Concent 33.0, Red Cell Distribution Width 11.5L, Platelet Count 292, Mean Platelet Volume 7.5, Neutrophils (%) (Auto) 78.7H, Lymphocytes (%) (Auto) 13.2L, Monocytes (%) (Auto) 6.3, Eosinophils (%) (Auto) 1.3, Basophils (%) (Auto ) 0.6, Sodium Level 139, Potassium Level 4.4, Chloride Level 103, Carbon Dioxide Level 28, Anion Gap 8, Blood Urea Nitrogen 17, Creatinine 0.8, Estimat Glomerular Filtration Rate > 60, Glucose Level 323H, Calcium Level 8.9 Current Medications Medications (Trade) Dose Ordered Sig/Ranjeet Route PRN Reason Start Time Stop Time Status Last Admin Dose Admin Acetaminophen (Tylenol) 650 mg Q4H PRN ORAL Mild Pain (Pain Scale 1-3) 04/16/20 02:30 05/16/20 02:29 Amlodipine Besylate (Norvasc) 5 mg DAILY ORAL 04/19/20 09:00 05/19/20 08:59 04/20/20 08:41 Aspirin (ASA) 81 mg DAILY NG 04/16/20 12:30 05/31/20 12:29 04/20/20 08:41 Cyclobenzaprine HCl (Flexeril) 10 mg THREE TIMES A DAY ORAL 04/17/20 22:15 05/17/20 22:14 04/20/20 17:08 Dextrose (Dextrose 50%) 25 ml Q30M PRN IV Hypoglycemia 04/20/20 15:30 07/19/20 15:29 Dextrose (Dextrose 50%) 50 ml Q30M PRN IV Hypoglycemia 04/20/20 15:30 07/19/20 15:29 Enalapril Maleate (Vasotec) 10 mg DAILY ORAL 04/16/20 12:15 05/16/20 12:14 04/20/20 08:42 Enoxaparin Sodium (Lovenox) 40 mg Q24H SUBQ 04/16/20 09:00 07/15/20 08:59 04/20/20 08:44 Gadobutrol (Gadavist) 7.5 mmol NOW PRN IV Radiology Procedure 04/17/20 15:30 04/21/20 15:23 Hydralazine HCl (Apresoline) 25 mg Q6H PRN ORAL For High Blood Pressure 04/16/20 04:30 07/15/20 04:29 04/19/20 05:04 Insulin Aspart (NovoLOG) BEFORE MEALS AND HS SUBQ 04/16/20 06:30 07/15/20 06:29 04/21/20 05:51 Insulin Aspart (NovoLOG) 10 units NOVOTIAC SUBQ 04/20/20 16:50 07/19/20 16:49 04/21/20 05:50 Insulin Detemir (Levemir) 30 units BEDTIME SUBQ 04/20/20 21:00 07/19/20 20:59 04/20/20 20:54 Methylprednisolone (Medrol) 4 mg ACBREAKFAST ORAL 04/21/20 06:30 04/25/20 08:30 04/21/20 05:48 Methylprednisolone (Medrol) 4 mg QHS ORAL 04/20/20 21:00 04/22/20 22:00 04/20/20 20:52 Morphine Sulfate (Morphine Sulfate) 1 mg Q4H PRN IVP Moderate Pain (Pain Scale 4-6) 04/16/20 02:30 04/23/20 02:29 04/19/20 01:58 Morphine Sulfate (Morphine Sulfate) 4 mg Q4H PRN IVP Severe Pain (Pain Scale 7-10) 04/16/20 02:30 04/23/20 02:29 04/21/20 03:44 Ondansetron HCl (Zofran) 4 mg Q6H PRN IVP Nausea & Vomiting 04/16/20 02:30 05/16/20 02:29 Polyethylene Glycol (Miralax) 17 gm HSPRN PRN ORAL Constipation 04/16/20 02:30 05/16/20 02:29 Assessment/Plan Assessment/Plan ASSESSMENT Chest wall pain Elevated troponin, Leg cramps Hypertension Diabetes mellitus Lumbar pain due to lumbar spine radiculopathy History of TIA Positive GER PLAN OF CARE telemetry serial troponin with minimal elevation EKG no acute ischemic changes Echo with pEF 65-70%, mild LVH, no evidence of WMA Venous duplex-> no evidence of DVT DVT prophylaxis with Lovenox O2 PRN titrate to keep sat above 90% pulmonary toilet prn pulse ox remained stable on RA all imaging noted ribs x-ray and sternum x-ray ->no evidence of fracture ; no definite abnormality MRI of the brain-> with chronic microvascular ischemic changes , no evidence of acute IC abnormality MRI of C-spine -> no acute abnormality, mild to moderate degenerative changes MRI of T spine -> no acute abnormality, minimal degenerative changes MRI of L-spine ->multiply level discogenic degenerative disease, progressed slightly from prior exam; severe left and moderate right foraminal narrowing with abutment of the exiting left L5 nerve root started on steroid pulse with tapering neuro eval GER+ FTA and RPR NGT pain management fall precaution PT eval and RX BP management with CCB continue aspirin BS management with SSI, Levemir added as per endo HgA1c -9.3 supportive care bowel regimen case discussed and evaluated by supervising physician Narcisa Partida NP Apr 21, 2020 07:47
[2020-04-21 08:00] VITALS: BP 142/86
[2020-04-21] MEDS: Aspirin Baby 81mg NG SCH (09:58)
[2020-04-21] MEDS: Enalapril 5mg tab ORAL SCH (09:59)
[2020-04-21] MEDS: Enoxaparin 40mg Inj SUBQ SCH (10:00)
[2020-04-21] MEDS: Cyclobenzaprine 10mg Tab ORAL SCH ×3 (10:01→18:27)
[2020-04-21] MEDS ORDERED: Gadavist 7.5mMol/7.5ml vial IV PRN (11:00)
[2020-04-21] MEDS ORDERED: Morphine Sulfate 2mg/ml Inj(IV/IM USE ONLY) IVP PRN (11:15)
[2020-04-21] MEDS ORDERED: Miralax 17gm pkt ORAL PRN (11:15)
[2020-04-21] MEDS ORDERED: NovoLOG Insulin Flexpen SUBQ SCH (11:50)
--- NOTE | 2020-04-21 12:08 | NUR ---
TRANSFER TO FLOOR: Patient transferred to 3E, per MD. Report given to Varun Kim RN. Belongings and medications given to Varun Kim RN. Family and or S/O informed of transfer. Left message on voicemail of Jamel Leigh, Contact/Son.
--- NOTE | 2020-04-21 12:15 | NUR ---
NURSE NOTES: Handoff received from Scottie BAH. Patient arrived safely from [facility] via patient bed. Patient is awake and alert, no signs of distress noted. Left FA 22g is patent and intact, saline locked. Siderails are padded for seizure precautions. Patient states that she is feeling better, no complaints of pain at this time. Bed is low and locked, side rails up x3, call light is within reach.
[2020-04-21 12:20] VITALS: BP 167/86
--- NOTE | 2020-04-21 12:52 | General Progress Note ---
Assessment/Plan Problem List: (1) ACS (acute coronary syndrome) ICD Codes: I24.9 - Acute ischemic heart disease, unspecified SNOMED: 653404522 (2) History of diabetes mellitus ICD Codes: Z86.39 - Personal history of other endocrine, nutritional and metabolic disease SNOMED: 618547535 (3) History of TIAs ICD Codes: Z86.73 - Personal history of transient ischemic attack (TIA), and cerebral infarction without residual deficits SNOMED: 994850640 (4) History of hypertension ICD Codes: Z86.79 - Personal history of other diseases of the circulatory system SNOMED: 054086630 Assessment/Plan: increase Levemir to 44 units qhs increase Novolog to 16 units ac tid continue Novolog sliding scale ac hs Subjective Allergies: Coded Allergies: No Known Allergies (Verified , 03/24/11) All Systems: reviewed and negative except above Subjective events noted glucose values are still elevated despite addition of high dose insulin regimen Item Value Date Time Bedside Blood Glucose 293 mg/dl H 04/21/20 1228 Bedside Blood Glucose 284 mg/dl H 04/21/20 0607 Bedside Blood Glucose 254 mg/dl H 04/20/20 2100 Bedside Blood Glucose 372 mg/dl H 04/20/20 1711 Objective Last 24 Hour Vital Signs Date Time Temp Pulse Resp B/P (MAP) Pulse Ox O2 Delivery O2 Flow Rate FiO2 04/21/20 12:20 97.8 77 20 167/86 (113) 100 04/21/20 10:37 97.9 04/21/20 09:59 80 142/86 04/21/20 09:59 142/86 04/21/20 09:00 Nasal Cannula 3.0 04/21/20 08:00 97.9 80 18 142/86 (104) 99 04/21/20 08:00 76 04/21/20 04:00 97.0 76 18 151/73 (99) 96 04/21/20 04:00 72 04/21/20 00:00 97.4 78 18 157/77 (103) 98 04/21/20 00:00 80 04/20/20 21:00 Nasal Cannula 2.0 04/20/20 20:00 97.9 85 18 156/80 (105) 98 04/20/20 20:00 88 04/20/20 16:03 79 04/20/20 16:03 97.7 94 18 146/72 (96) 100 Intake and Output 04/20/20 04/21/20 19:00 07:00 Intake Total 490 ml 600 ml Output Total 850 ml 800 ml Balance -360 ml -200 ml Intake Oral 490 ml 600 ml Output Urine Total 850 ml 800 ml Laboratory Tests 04/20/20 15:40: Hemoglobin A1c 9.3H 04/20/20 20:50: POC Whole Blood Glucose [Pending] 04/21/20 06:05: White Blood Count 8.2, Red Blood Count 4.10L, Hemoglobin 13.2, Hematocrit 39.9, Mean Corpuscular Volume 97, Mean Corpuscular Hemoglobin 32.1H, Mean Corpuscular Hemoglobin Concent 33.0, Red Cell Distribution Width 11.5L, Platelet Count 292, Mean Platelet Volume 7.5, Neutrophils (%) (Auto) 78.7H, Lymphocytes (%) (Auto) 13.2L, Monocytes (%) (Auto) 6.3, Eosinophils (%) (Auto) 1.3, Basophils (%) (Auto ) 0.6, Sodium Level 139, Potassium Level 4.4, Chloride Level 103, Carbon Dioxide Level 28, Anion Gap 8, Blood Urea Nitrogen 17, Creatinine 0.8, Estimat Glomerular Filtration Rate > 60, Glucose Level 323H, Calcium Level 8.9 04/21/20 12:21: POC Whole Blood Glucose [Pending] Height (Feet): 5 Height (Inches): 8.00 Weight (Pounds): 166 General Appearance: no apparent distress Neck: normal alignment Cardiovascular: normal rate Respiratory/Chest: lungs clear Abdomen: normal bowel sounds Objective Current Medications Medications (Trade) Dose Ordered Sig/Ranjeet Route PRN Reason Start Time Stop Time Status Last Admin Dose Admin Acetaminophen (Tylenol) 650 mg Q4H PRN ORAL Mild Pain (Pain Scale 1-3) 04/21/20 11:00 05/16/20 10:59 Amlodipine Besylate (Norvasc) 5 mg DAILY ORAL 04/22/20 09:00 05/19/20 08:59 Aspirin (ASA) 81 mg DAILY ORAL 04/22/20 09:00 05/31/20 12:29 Cyclobenzaprine HCl (Flexeril) 10 mg THREE TIMES A DAY ORAL 04/21/20 13:00 05/17/20 22:14 Dextrose (Dextrose 50%) 25 ml Q30M PRN IV Hypoglycemia 04/21/20 11:00 07/19/20 15:29 Dextrose (Dextrose 50%) 50 ml Q30M PRN IV Hypoglycemia 04/21/20 11:00 07/19/20 15:29 Enalapril Maleate (Vasotec) 10 mg DAILY ORAL 04/22/20 09:00 05/16/20 12:14 Enoxaparin Sodium (Lovenox) 40 mg Q24H SUBQ 04/22/20 09:00 07/15/20 08:59 Gadobutrol (Gadavist) 7.5 mmol NOW PRN IV Radiology Procedure 04/21/20 11:00 04/21/20 15:23 Hydralazine HCl (Apresoline) 25 mg Q6H PRN ORAL For High Blood Pressure 04/21/20 16:30 07/15/20 04:29 Insulin Aspart (NovoLOG) BEFORE MEALS AND HS SUBQ 04/21/20 11:30 07/15/20 06:29 04/21/20 12:28 Insulin Aspart (NovoLOG) 10 units NOVOTIAC SUBQ 04/21/20 11:50 07/19/20 16:49 04/21/20 12:27 Insulin Detemir (Levemir) 30 units BEDTIME SUBQ 04/21/20 21:00 07/19/20 20:59 Methylprednisolone (Medrol) 4 mg ACBREAKFAST ORAL 04/22/20 06:30 04/25/20 08:30 Methylprednisolone (Medrol) 4 mg QHS ORAL 04/21/20 21:00 04/22/20 22:00 Morphine Sulfate (Morphine Sulfate) 1 mg Q4H PRN IVP Moderate Pain (Pain Scale 4-6) 04/21/20 11:15 04/23/20 11:14 Morphine Sulfate (Morphine Sulfate) 4 mg Q4H PRN IVP Severe Pain (Pain Scale 7-10) 04/21/20 11:15 04/23/20 11:14 Ondansetron HCl (Zofran) 4 mg Q6H PRN IVP Nausea & Vomiting 04/21/20 11:15 05/16/20 11:14 Polyethylene Glycol (Miralax) 17 gm HSPRN PRN ORAL Constipation 04/21/20 11:15 05/21/20 11:14 Edison Beal MD Apr 21, 2020 12:52
--- NOTE | 2020-04-21 15:44 | Internal Med Progress Note ---
Subjective Date of Service: Apr 21, 2020 Physician Name Cruz uLi Attending Physician Lion Alvares MD Current Medications Medications (Trade) Dose Ordered Sig/Ranjeet Route PRN Reason Start Time Stop Time Status Last Admin Dose Admin Acetaminophen (Tylenol) 650 mg Q4H PRN ORAL Mild Pain (Pain Scale 1-3) 04/21/20 11:00 05/16/20 10:59 Amlodipine Besylate (Norvasc) 5 mg DAILY ORAL 04/22/20 09:00 05/19/20 08:59 Aspirin (ASA) 81 mg DAILY ORAL 04/22/20 09:00 05/31/20 12:29 Cyclobenzaprine HCl (Flexeril) 10 mg THREE TIMES A DAY ORAL 04/21/20 13:00 05/17/20 22:14 04/21/20 13:10 Dextrose (Dextrose 50%) 25 ml Q30M PRN IV Hypoglycemia 04/21/20 11:00 07/19/20 15:29 Dextrose (Dextrose 50%) 50 ml Q30M PRN IV Hypoglycemia 04/21/20 11:00 07/19/20 15:29 Enalapril Maleate (Vasotec) 10 mg DAILY ORAL 04/22/20 09:00 05/16/20 12:14 Enoxaparin Sodium (Lovenox) 40 mg Q24H SUBQ 04/22/20 09:00 07/15/20 08:59 Hydralazine HCl (Apresoline) 25 mg Q6H PRN ORAL For High Blood Pressure 04/21/20 16:30 07/15/20 04:29 Insulin Aspart (NovoLOG) BEFORE MEALS AND HS SUBQ 04/21/20 11:30 07/15/20 06:29 04/21/20 12:28 Insulin Aspart (NovoLOG) 16 units NOVOTIAC SUBQ 04/21/20 16:50 07/19/20 16:49 Insulin Detemir (Levemir) 44 units BEDTIME SUBQ 04/21/20 21:00 07/19/20 20:59 Methylprednisolone (Medrol) 4 mg ACBREAKFAST ORAL 04/22/20 06:30 04/25/20 08:30 Methylprednisolone (Medrol) 4 mg QHS ORAL 04/21/20 21:00 04/22/20 22:00 Morphine Sulfate (Morphine Sulfate) 1 mg Q4H PRN IVP Moderate Pain (Pain Scale 4-6) 04/21/20 11:15 04/23/20 11:14 Morphine Sulfate (Morphine Sulfate) 4 mg Q4H PRN IVP Severe Pain (Pain Scale 7-10) 04/21/20 11:15 04/23/20 11:14 04/21/20 14:23 Ondansetron HCl (Zofran) 4 mg Q6H PRN IVP Nausea & Vomiting 04/21/20 11:15 05/16/20 11:14 Polyethylene Glycol (Miralax) 17 gm HSPRN PRN ORAL Constipation 04/21/20 11:15 05/21/20 11:14 Allergies: Coded Allergies: No Known Allergies (Verified , 03/24/11) ROS Limited/Unobtainable: No Constitutional: Reports: no symptoms HEENT: Reports: no symptoms Cardiovascular: Reports: no symptoms Respiratory: Reports: no symptoms Gastrointestinal/Abdominal: Reports: no symptoms Genitourinary: Reports: no symptoms Neurologic/Psychiatric: Reports: no symptoms Subjective 64 YO F admitted with back pain. Now lumbar stenosis. Cover for Int Med-Dr Tim Objective Last Vital Signs Date Time Temp Pulse Resp B/P (MAP) Pulse Ox O2 Delivery O2 Flow Rate FiO2 04/21/20 12:20 97.8 77 20 167/86 (113) 100 04/21/20 09:00 Nasal Cannula 3.0 Laboratory Tests Test 04/20/20 20:50 04/21/20 06:05 04/21/20 12:21 POC Whole Blood Glucose Pending 293 MG/DL (74-106) H White Blood Count 8.2 K/UL (4.8-10.8) Red Blood Count 4.10 M/UL (4.20-5.40) L Hemoglobin 13.2 G/DL (12.0-16.0) Hematocrit 39.9 % (37.0-47.0) Mean Corpuscular Volume 97 FL (80-99) Mean Corpuscular Hemoglobin 32.1 PG (27.0-31.0) H Mean Corpuscular Hemoglobin Concent 33.0 G/DL (32.0-36.0) Red Cell Distribution Width 11.5 % (11.6-14.8) L Platelet Count 292 K/UL (150-450) Mean Platelet Volume 7.5 FL (6.5-10.1) Neutrophils (%) (Auto) 78.7 % (45.0-75.0) H Lymphocytes (%) (Auto) 13.2 % (20.0-45.0) L Monocytes (%) (Auto) 6.3 % (1.0-10.0) Eosinophils (%) (Auto) 1.3 % (0.0-3.0) Basophils (%) (Auto) 0.6 % (0.0-2.0) Sodium Level 139 MMOL/L (136-145) Potassium Level 4.4 MMOL/L (3.5-5.1) Chloride Level 103 MMOL/L (98-107) Carbon Dioxide Level 28 MMOL/L (21-32) Anion Gap 8 mmol/L (5-15) Blood Urea Nitrogen 17 mg/dL (7-18) Creatinine 0.8 MG/DL (0.55-1.30) Estimat Glomerular Filtration Rate > 60 mL/min (>60) Glucose Level 323 MG/DL (74-106) H Calcium Level 8.9 MG/DL (8.5-10.1) Microbiology Date/Time Source Procedure Growth Status 04/18/20 18:00 Nasopharynx Coronavirus COVID-19 PCR ([facility]) - Final Complete Intake and Output 04/20/20 04/21/20 19:00 07:00 Intake Total 490 ml 600 ml Output Total 850 ml 800 ml Balance -360 ml -200 ml Intake Oral 490 ml 600 ml Output Urine Total 850 ml 800 ml Objective Objective General: No acute distress, awake and alert HEENT: NCAT, sclera anicteric, PERRL, EOMI. Neck: Supple, no significant jugular venous distention, Lungs: Fair inspiratory effort, clear to auscultation bilaterally, no Wheeze or Rales. Heart: Regular rate and rhythm, normal S1/S2, no murmurs, distant heart sound. Abdomen: soft, nontender, nondistended. Normoactive bowel sounds, Morbid obesity. Extremities: No Cyanosis , clubbing or edema. Neuro: A&O x 3, Able to move all extremities, Left side weaker than right side. Psych: Normal mood and affect Assessment/Plan Assessment/Plan Assessment/Plan Assessment/Plan 1. Lumbar pain 2/2 severe left and moderate right foraminal narrowing with abutment of the exiting left L5 nerve root 2. Chest pain with intermediate troponin. 3. Diabetes. 4. Hypertension. 5. History of trigeminal neuralgia. 6. Hemochromatosis. PLAN: 1. In Telemetry. 2. Cardiology consult. 3. Neurology consult. 4. Flexeril 10 mg p.o. TID 5. MRI of spine (C/T/L) - shows severe left and moderate right foraminal narrowing with abutment of the exiting left L5 nerve root 6. PT evaluation 7. On aspirin. 8. Full code. 9. DVT prophylaxis: Lovenox SQ 10. trial of Decadron taper Cruz Lui MD Apr 21, 2020 15:44
[2020-04-21 16:00] VITALS: BP 140/88
--- NOTE | 2020-04-21 17:43 | Cardiology Progress Note ---
Assessment/Plan Assessment/Plan no new developments from cardiac standpoint Subjective Subjective alert, apprehensive, denied chest pain, has dyspnea Objective Last 24 Hour Vital Signs Date Time Temp Pulse Resp B/P (MAP) Pulse Ox O2 Delivery O2 Flow Rate FiO2 04/21/20 12:20 97.8 77 20 167/86 (113) 100 04/21/20 10:37 97.9 04/21/20 09:59 80 142/86 04/21/20 09:59 142/86 04/21/20 09:00 Nasal Cannula 3.0 04/21/20 08:00 97.9 80 18 142/86 (104) 99 04/21/20 08:00 76 04/21/20 04:00 97.0 76 18 151/73 (99) 96 04/21/20 04:00 72 04/21/20 00:00 97.4 78 18 157/77 (103) 98 04/21/20 00:00 80 04/20/20 21:00 Nasal Cannula 2.0 04/20/20 20:00 97.9 85 18 156/80 (105) 98 04/20/20 20:00 88 General Appearance: no apparent distress EENT: PERRL/EOMI Neck: supple Rhythm: NSR Cardiovascular: normal rate Respiratory/Chest: lungs clear Abdomen: soft Extremities: non-tender Intake and Output 04/20/20 04/21/20 19:00 07:00 Intake Total 490 ml 600 ml Output Total 850 ml 800 ml Balance -360 ml -200 ml Intake Oral 490 ml 600 ml Output Urine Total 850 ml 800 ml Laboratory Tests Test 04/20/20 20:50 04/21/20 06:05 04/21/20 12:21 04/21/20 15:48 POC Whole Blood Glucose Pending 293 MG/DL (74-106) H 216 MG/DL (74-106) H White Blood Count 8.2 K/UL (4.8-10.8) Red Blood Count 4.10 M/UL (4.20-5.40) L Hemoglobin 13.2 G/DL (12.0-16.0) Hematocrit 39.9 % (37.0-47.0) Mean Corpuscular Volume 97 FL (80-99) Mean Corpuscular Hemoglobin 32.1 PG (27.0-31.0) H Mean Corpuscular Hemoglobin Concent 33.0 G/DL (32.0-36.0) Red Cell Distribution Width 11.5 % (11.6-14.8) L Platelet Count 292 K/UL (150-450) Mean Platelet Volume 7.5 FL (6.5-10.1) Neutrophils (%) (Auto) 78.7 % (45.0-75.0) H Lymphocytes (%) (Auto) 13.2 % (20.0-45.0) L Monocytes (%) (Auto) 6.3 % (1.0-10.0) Eosinophils (%) (Auto) 1.3 % (0.0-3.0) Basophils (%) (Auto) 0.6 % (0.0-2.0) Sodium Level 139 MMOL/L (136-145) Potassium Level 4.4 MMOL/L (3.5-5.1) Chloride Level 103 MMOL/L (98-107) Carbon Dioxide Level 28 MMOL/L (21-32) Anion Gap 8 mmol/L (5-15) Blood Urea Nitrogen 17 mg/dL (7-18) Creatinine 0.8 MG/DL (0.55-1.30) Estimat Glomerular Filtration Rate > 60 mL/min (>60) Glucose Level 323 MG/DL (74-106) H Calcium Level 8.9 MG/DL (8.5-10.1) Microbiology Date/Time Source Procedure Growth Status 04/18/20 18:00 Nasopharynx Coronavirus COVID-19 PCR ([facility]) - Final Complete Brianne Hilliard MD Apr 21, 2020 17:43
--- NOTE | 2020-04-21 19:39 | NUR ---
NURSES NOTE: Rounds made with OLVIN Bond. Pt is sitting up in bed, A/OX4, able to answers all questions appropriately. Pt states she has pain 5/10 - generalized pain. Pain meds will be given PRN to make pt comfortable. No outward s/s of distress noted. Breathing pattern is even and unlabored on Nasal Canula 3L/min. Side rails padded for seizure precautions. L forearm [address], patent, Hep locked. All due meds will be given. Bed at lowest level, call light within reach. Pt will continue to be monitored. Addendum: 04/21/20 at 2044 by Shirley Hernandez RN Following charting made under incorrect pt. Pls disregard. Addendum: 04/21/20 at 2056 by Shirley Hernandez RN This note is for correct pt. Following charting (next nurse note) is incorrect pt. Pls read and apply THIS note to pt care for Dada James room 301-1
--- NOTE | 2020-04-21 19:45 | NUR ---
HAND-OFF: Report given to Shirley BAH.
--- NOTE | 2020-04-21 19:53 | NUR ---
NURSES NOTE: Rounds made with OLVIN Bond. Pt in bed, at bedside. No outward s/s of distress noted. Breathing pattern is even and unlabored on RA. LLQ ileo, set to drain by gravity, patent, to be flushed q3h and PRN. Dressing, L abdomen, is clean, dry and intact. IV R forearm 22 gauge, is intact, infusing IVF fluids without incident. Pt complains of pain 6/10 in abdominal area. PRN Pain meds will be given accordingly. Bed at lowest level, call light within reach. Pt will continue to be monitored. Addendum: 04/21/20 at 2045 by Shirley Hernandez RN PLS disregard. Charted under incorrect patient.
[2020-04-21 20:00] VITALS: BP 139/78
[2020-04-21] MEDS ORDERED: Levemir Flexpen SUBQ SCH ×2 (21:00)
[2020-04-22] VITALS (11 sets, daily range): BP systolic 121–172; BP diastolic 65–94
--- NOTE | 2020-04-22 02:58 | NUR ---
HAND OFF: Report given to OLVIN Nunez. Pt left in stable condition.
[2020-04-22] MEDS: Morphine Sulfate 4mg/ml Inj (IV USE ONLY) IVP PRN ×4 (04:55→23:50)
[2020-04-22] MEDS: NovoLOG Insulin Flexpen SUBQ SCH ×7 (05:43→21:34)
--- NOTE | 2020-04-22 06:50 | General Progress Note ---
Assessment/Plan Problem List: (1) ACS (acute coronary syndrome) ICD Codes: I24.9 - Acute ischemic heart disease, unspecified SNOMED: 724056005 (2) History of diabetes mellitus ICD Codes: Z86.39 - Personal history of other endocrine, nutritional and metabolic disease SNOMED: 184284462 (3) History of TIAs ICD Codes: Z86.73 - Personal history of transient ischemic attack (TIA), and cerebral infarction without residual deficits SNOMED: 754362806 (4) History of hypertension ICD Codes: Z86.79 - Personal history of other diseases of the circulatory system SNOMED: 128582149 Assessment/Plan: increase Levemir to 60 units qhs increase Novolog to 20 units ac tid continue Novolog sliding scale ac hs Subjective Allergies: Coded Allergies: No Known Allergies (Verified , 03/24/11) All Systems: reviewed and negative except above Subjective events noted glucose values are still elevated despite addition of high dose insulin regimen Item Value Date Time Bedside Blood Glucose 268 mg/dl H 04/22/20 0630 Bedside Blood Glucose 303 mg/dl H 04/21/20 2127 Bedside Blood Glucose 216 mg/dl H 04/21/20 1703 Bedside Blood Glucose 293 mg/dl H 04/21/20 1228 Bedside Blood Glucose 284 mg/dl H 04/21/20 0607 Objective Last 24 Hour Vital Signs Date Time Temp Pulse Resp B/P (MAP) Pulse Ox O2 Delivery O2 Flow Rate FiO2 04/22/20 05:25 97.4 04/22/20 04:00 97.4 79 18 143/78 (99) 99 04/22/20 00:00 98.4 87 17 133/73 (93) 96 04/21/20 21:00 Nasal Cannula 3.0 04/21/20 20:00 97.6 104 18 139/78 (98) 98 04/21/20 16:00 98.0 105 20 140/88 (105) 99 04/21/20 12:20 97.8 77 20 167/86 (113) 100 04/21/20 10:37 97.9 04/21/20 09:59 80 142/86 04/21/20 09:59 142/86 04/21/20 09:00 Nasal Cannula 3.0 04/21/20 08:00 97.9 80 18 142/86 (104) 99 04/21/20 08:00 76 Intake and Output 04/21/20 04/22/20 19:00 07:00 Intake Total 400 ml 800 ml Output Total 500 ml 900 ml Balance -100 ml -100 ml Intake Oral 400 ml 800 ml Output Urine Total 500 ml 900 ml Laboratory Tests 04/21/20 12:21: POC Whole Blood Glucose 293H 04/21/20 15:48: POC Whole Blood Glucose 216H 04/21/20 21:22: POC Whole Blood Glucose 303H 04/22/20 04:00: White Blood Count [Pending], Red Blood Count [Pending], Hemoglobin [Pending], Hematocrit [Pending], Mean Corpuscular Volume [Pending], Mean Corpuscular Hemoglobin [Pending], Mean Corpuscular Hemoglobin Concent [Pending], Red Cell Distribution Width [Pending], Platelet Count [Pending], Mean Platelet Volume [ Pending], Neutrophils (%) (Auto) [Pending], Lymphocytes (%) (Auto) [Pending], Monocytes (%) (Auto) [Pending], Eosinophils (%) (Auto) [Pending], Basophils (%) (Auto) [Pending], Sodium Level [Pending], Potassium Level [Pending], Chloride Level [Pending], Carbon Dioxide Level [Pending], Blood Urea Nitrogen [Pending], Creatinine [Pending], Estimat Glomerular Filtration Rate [Pending], Glucose Level [Pending], Calcium Level [Pending] 04/22/20 05:38: POC Whole Blood Glucose 268H Height (Feet): 5 Height (Inches): 8.00 Weight (Pounds): 166 General Appearance: no apparent distress Cardiovascular: normal rate Respiratory/Chest: lungs clear Abdomen: normal bowel sounds Objective Current Medications Medications (Trade) Dose Ordered Sig/Ranjeet Route PRN Reason Start Time Stop Time Status Last Admin Dose Admin Acetaminophen (Tylenol) 650 mg Q4H PRN ORAL Mild Pain (Pain Scale 1-3) 04/21/20 11:00 05/16/20 10:59 Amlodipine Besylate (Norvasc) 5 mg DAILY ORAL 04/22/20 09:00 05/19/20 08:59 Aspirin (ASA) 81 mg DAILY ORAL 04/22/20 09:00 05/31/20 12:29 Cyclobenzaprine HCl (Flexeril) 10 mg THREE TIMES A DAY ORAL 04/21/20 13:00 05/17/20 22:14 04/21/20 18:27 Dextrose (Dextrose 50%) 25 ml Q30M PRN IV Hypoglycemia 04/21/20 11:00 07/19/20 15:29 Dextrose (Dextrose 50%) 50 ml Q30M PRN IV Hypoglycemia 04/21/20 11:00 07/19/20 15:29 Enalapril Maleate (Vasotec) 10 mg DAILY ORAL 04/22/20 09:00 05/16/20 12:14 Enoxaparin Sodium (Lovenox) 40 mg Q24H SUBQ 04/22/20 09:00 07/15/20 08:59 Hydralazine HCl (Apresoline) 25 mg Q6H PRN ORAL For High Blood Pressure 04/21/20 16:30 07/15/20 04:29 Insulin Aspart (NovoLOG) BEFORE MEALS AND HS SUBQ 04/21/20 11:30 07/15/20 06:29 04/22/20 05:45 Insulin Aspart (NovoLOG) 16 units NOVOTIAC SUBQ 04/21/20 16:50 07/19/20 16:49 04/22/20 05:43 Insulin Detemir (Levemir) 44 units BEDTIME SUBQ 04/21/20 21:00 07/19/20 20:59 04/21/20 21:25 Methylprednisolone (Medrol) 4 mg ACBREAKFAST ORAL 04/22/20 06:30 04/25/20 08:30 04/22/20 05:41 Methylprednisolone (Medrol) 4 mg QHS ORAL 04/21/20 21:00 04/22/20 22:00 04/21/20 21:19 Morphine Sulfate (Morphine Sulfate) 1 mg Q4H PRN IVP Moderate Pain (Pain Scale 4-6) 04/21/20 11:15 04/23/20 11:14 Morphine Sulfate (Morphine Sulfate) 4 mg Q4H PRN IVP Severe Pain (Pain Scale 7-10) 04/21/20 11:15 04/23/20 11:14 04/22/20 04:55 Ondansetron HCl (Zofran) 4 mg Q6H PRN IVP Nausea & Vomiting 04/21/20 11:15 05/16/20 11:14 Polyethylene Glycol (Miralax) 17 gm HSPRN PRN ORAL Constipation 04/21/20 11:15 05/21/20 11:14 Edison Beal MD Apr 22, 2020 06:50
[2020-04-22 07:07] LABS: BASOPHILS % (AUTO) 0.6 % (0.0-2.0); EOSINOPHILS % (AUTO) 2.2 % (0.0-3.0); HEMATOCRIT 41.3 % (37.0-47.0); HEMOGLOBIN 13.5 G/DL (12.0-16.0); LYMPHOCYTES % (AUTO) 19.1 % (20.0-45.0); MEAN CORPUSCULAR VOLUME 98 FL (80-99); MONOCYTES % (AUTO) 8.3 % (1.0-10.0); NEUTROPHILS % (AUTO) 69.7 % (45.0-75.0); PLATELET COUNT 297 K/UL (150-450); RED BLOOD COUNT 4.21 M/UL (4.20-5.40); RED CELL DISTRIBUTION WIDTH 11.8 % (11.6-14.8); WHITE BLOOD COUNT 6.6 K/UL (4.8-10.8)
[2020-04-22 07:22] LABS: ANION GAP 8 mmol/L (5-15); BLOOD UREA NITROGEN 20 mg/dL (7-18); CALCIUM 8.4 MG/DL (8.5-10.1); CARBON DIOXIDE 29 MMOL/L (21-32); CHLORIDE 102 MMOL/L (98-107); CREATININE 0.7 MG/DL (0.55-1.30); POTASSIUM 4.3 MMOL/L (3.5-5.1); SODIUM 139 MMOL/L (136-145)
--- NOTE | 2020-04-22 07:30 | Consultation ---
DATE OF CONSULTATION: 04/17/2020 NEUROLOGICAL CONSULTATION CONSULTING PHYSICIAN: Christos Nicholson MD HISTORY OF PRESENT ILLNESS: This is a 64-year-old woman with a history of seizures 20 years ago, but never treated, hereditary hemochromatosis, diabetes for many years, hypertension, dysautonomia, and trigeminal neuralgia, who was admitted with a chief complaint of generalized body pain, severe muscle spasms, worsening over the past 3 days but started about a month ago. She has had previous attacks off and on 3 years ago. I was asked to see the patient to rule out MS. The patient's spasms are daily, lasting 10 seconds at least, usually starting in her legs, more on the right than the left side, and are severely painful. The patient has chest pain as well with tightness. The patient has had daily headaches and memory loss at least since October 2019. She denies any seizures or blackout spells. She does have loss of smell, but not taste. She has blurred vision and now diplopia. There is no good history of optic neuritis. However, she does have episodes of visual loss in the left eye, which can last half a day. She has paresthesias in the lower extremities, right side greater than left since September 2019. The patient has had muscle weakness, mostly in her legs, some episodic tremors in her arms. The muscles stiffen up with her spasms. She denies any alcohol abuse, tobacco use, or drug use. There is no history of syphilis or gonorrhea. She claims she had ongoing hyperthyroidism discovered 3 to 5 years ago. She has some constipation. She has daily constant neck and back pain. She has never had any imaging or nerve conduction study and claims she has never had MRI scan of her brain. She denies a history of sickle cell disease. Her sister has a history of multiple sclerosis. She has no history of cardiac disease. PAST MEDICAL HISTORY: 1. Appendectomy. 2. L5-S1 laminectomy, diskectomy, and foraminectomy. 3. Hepatitis C and took Harvoni. 4. Hypertension for 15 years. 5. Cervical spondylosis. 6. Osteoarthritis. 7. Hereditary hemochromatosis. ALLERGIES: She is allergic to doxycycline, [place], and tramadol. SOCIAL HISTORY: She lives at home with her son. She is not . She has a sister who allegedly has MS. SURGERIES: See above. REVIEW OF SYSTEMS: Appetite is good. Weight stable at 158 pounds. 5 feet 7 inches tall. See above for the rest of the review of systems. PHYSICAL EXAMINATION: GENERAL: She is a well-developed, obese, elderly woman lying in bed, not in distress, with painful stiffness of the lower extremities, especially on the right side lasting seconds. VITAL SIGNS: Blood pressure is 167/81, pulse is 115, temperature is 98.3 degrees, respiration rate is 20, pulse oximetry is 97%. HEENT: Examination of head is normal. NECK: There is posterior cervical tenderness. No limitation of motion. Carotids are +2 without any bruits. LUNGS: Basically clear. CARDIOVASCULAR: PMI cannot be felt. JVP was not visualized. The patient had normal S1. S2 is physiologically split. I could not hear any murmurs or rubs. ABDOMEN: The abdomen is obese. Bowel sounds are intact. No tenderness, masses, or organomegaly. BACK: I could not examine. EXTREMITIES: Normal. NEUROLOGIC: MENTAL STATUS: Judgment is fair. Affect was appropriate. Mood was depressed. Intellect, mild similarities were intact, i.e., train and bicycle . Orientation, time. Initially, she thought the date was 12/14/2019, then said 11/13/2019, finally March 2020. Hospital, initially she said she was at [facility] and then [facility]. She did not know what floor she was on. She is oriented to person. Language function, spoken speech was fluent without paraphasias. She could spell world backwards and forwards. CRANIAL NERVE EXAMINATION: Cranial Nerve II: Visual ordoñez intact to confrontation. There is no afferent pupillary defect noted. Cranial Nerves III, IV, and : Extraocular motility was full. Pupils are approximately 4 mm, round, somewhat sluggishly reactive to light. Cranial Nerve V: There is decreased sensation on the right side of the face to fine touch in the first, second, and third divisions of the 5th cranial nerve. CRANIAL NERVE VII: Facial strength 5/5. CRANIAL NERVE VIII: Auditory acuity is intact bilaterally. CRANIAL NERVE IX AND X: Not tested. CRANIAL NERVES XI AND XII: Intact. MUSCLE EXAMINATION: She initially had lead-pipe rigidity with her spasms . This was mainly in her legs. Bulk was symmetrical bilaterally. Strength is difficult to evaluate, was at least 4/5. There was some tremor noted in the right upper extremity. Reflexes are +1 in the upper extremities, 0 at the knees and ankles, with indefinite toe on the right side and downgoing toe on the left side. COORDINATION: Rinono-lx-bqft revealed dysmetria and she could not do rapid alternating movements. Uiyg-mo-dbof testing could not be done. GAIT AND STATION: Not tested. Patient uses a walker. SENSORY EXAMINATION: Difficult to evaluate. Decreased pinprick and fine touch in the right lower extremity. LABORATORY DATA: The patient's MRI of the cervical and thoracic spinal cord was normal, although it was a noncontrast study. Chest x-ray was unremarkable. She did have a venous duplex of the lower extremities, which was normal. is almost totally normal. Her sed rate was 15. The GER screen is positive, level not done. The B12 level was over 700. Renal function is intact. C-reactive protein is a little elevated. Troponin is mildly elevated. IMPRESSION: The fact that this patient has multiple sclerosis and the fact that she has a positive GER did suggest that she has SLE, which could explain her "seizures" in the past, although she states she never got studies in the past, nor was she ever treated for seizures in the past. I doubt that this is stiff-man syndrome, it is obviously not. There is no trismus. A stiff-man or stiff-person syndrome can be related to a paraneoplastic syndrome, but I doubt it. The best test for multiple sclerosis would actually be an MRI scan of the brain with and without gadolinium. If the MRI of the brain is negative, cervical spine is negative, thoracic spinal cord is negative, then the chances of her having multiple sclerosis is pretty low, although we do want to do a lumbar puncture and do an MS panel. The patient also has evidence for peripheral nerve disease, large fiber, which is most likely related to her diabetes. Hemochromatosis has not been confirmed. I do not see any strong evidence as well. PLAN: 1. MRI scan of the brain without gadolinium . 2. Follow up on possible SLE. 3. We will try to get old records if available. Thanks for this interesting case. Christos MD Bharat DR: LYUBOV JOB#: [id number] CC:
--- NOTE | 2020-04-22 07:50 | NUR ---
NURSE NOTES: Received report from Julia. Patient is asleep during rounds, in no apparent distress, RR even and unlabored, on 3L NC. Fall precautions maintained. Side rails upx2, bed low and locked, call light within reach, bed alarm armed.
[2020-04-22] MEDS: Aspirin Baby 81mg ORAL SCH (09:06)
[2020-04-22] MEDS: Enalapril 5mg tab ORAL SCH (09:07)
[2020-04-22] MEDS: Enoxaparin 40mg Inj SUBQ SCH (09:07)
[2020-04-22] MEDS: Cyclobenzaprine 10mg Tab ORAL SCH ×3 (09:07→17:19)
[2020-04-22] MEDS ORDERED: NORVASC5 MG ORAL (12:33)
[2020-04-22] MEDS ORDERED: LEVEMIR FL100 UNIT/1 SUBQ (12:33)
[2020-04-22] MEDS ORDERED: NOVOLOG100 UNITS1 SUBQ (12:33)
[2020-04-22] MEDS ORDERED: CYCLOBENZAPRINE10 MG ORAL (12:33)
--- NOTE | 2020-04-22 12:44 | Pulmonology Progress Note ---
Subjective ROS Limited/Unobtainable: No Interval Events: c/o cramps in legs Constitutional: Reports: no symptoms HEENT: Repors: no symptoms Allergies: Coded Allergies: No Known Allergies (Verified , 03/24/11) All Systems: reviewed and negative except above Objective Last 24 Hour Vital Signs Date Time Temp Pulse Resp B/P (MAP) Pulse Ox O2 Delivery O2 Flow Rate FiO2 04/22/20 09:07 121/65 04/22/20 09:06 86 121/65 04/22/20 09:00 Nasal Cannula 2.0 04/22/20 08:00 97.7 86 16 121/65 (83) 98 04/22/20 05:25 97.4 04/22/20 04:00 97.4 79 18 143/78 (99) 99 04/22/20 00:00 98.4 87 17 133/73 (93) 96 04/21/20 21:00 Nasal Cannula 3.0 04/21/20 20:00 97.6 104 18 139/78 (98) 98 04/21/20 16:00 98.0 105 20 140/88 (105) 99 Intake and Output 04/21/20 04/22/20 19:00 07:00 Intake Total 400 ml 800 ml Output Total 500 ml 900 ml Balance -100 ml -100 ml Intake Oral 400 ml 800 ml Output Urine Total 500 ml 900 ml General Appearance: WD/WN HEENT: normocephalic, atraumatic, PERRL, supple Respiratory: chest wall non-tender, lungs clear Cardiovascular: normal rate Abdomen: normal bowel sounds, soft, non tender, non distended Extremities: no cyanosis, no edema, pedal pulses normal Skin: no rash Neurologic: alert, oriented x 3, responsive Musculoskeletal: normal muscle bulk Laboratory Tests 04/21/20 15:48: POC Whole Blood Glucose 216H 04/21/20 21:22: POC Whole Blood Glucose 303H 04/22/20 04:00: White Blood Count 6.6, Red Blood Count 4.21, Hemoglobin 13.5, Hematocrit 41.3, Mean Corpuscular Volume 98, Mean Corpuscular Hemoglobin 32.1H, Mean Corpuscular Hemoglobin Concent 32.7, Red Cell Distribution Width 11.8, Platelet Count 297, Mean Platelet Volume 7.4, Neutrophils (%) (Auto) 69.7, Lymphocytes (%) (Auto) 19.1L, Monocytes (%) (Auto) 8.3, Eosinophils (%) (Auto) 2.2, Basophils (%) (Auto ) 0.6, Sodium Level 139, Potassium Level 4.3, Chloride Level 102, Carbon Dioxide Level 29, Anion Gap 8, Blood Urea Nitrogen 20H, Creatinine 0.7, Estimat Glomerular Filtration Rate > 60, Glucose Level 271H, Calcium Level 8.4L 04/22/20 05:38: POC Whole Blood Glucose 268H 04/22/20 11:56: POC Whole Blood Glucose [Pending] Current Medications Medications (Trade) Dose Ordered Sig/Ranjeet Route PRN Reason Start Time Stop Time Status Last Admin Dose Admin Acetaminophen (Tylenol) 650 mg Q4H PRN ORAL Mild Pain (Pain Scale 1-3) 04/21/20 11:00 05/16/20 10:59 Amlodipine Besylate (Norvasc) 5 mg DAILY ORAL 04/22/20 09:00 05/19/20 08:59 04/22/20 09:06 Aspirin (ASA) 81 mg DAILY ORAL 04/22/20 09:00 05/31/20 12:29 04/22/20 09:06 Cyclobenzaprine HCl (Flexeril) 10 mg THREE TIMES A DAY ORAL 04/21/20 13:00 05/17/20 22:14 04/22/20 09:07 Dextrose (Dextrose 50%) 25 ml Q30M PRN IV Hypoglycemia 04/21/20 11:00 07/19/20 15:29 Dextrose (Dextrose 50%) 50 ml Q30M PRN IV Hypoglycemia 04/21/20 11:00 07/19/20 15:29 Enalapril Maleate (Vasotec) 10 mg DAILY ORAL 04/22/20 09:00 05/16/20 12:14 04/22/20 09:07 Enoxaparin Sodium (Lovenox) 40 mg Q24H SUBQ 04/22/20 09:00 07/15/20 08:59 04/22/20 09:07 Hydralazine HCl (Apresoline) 25 mg Q6H PRN ORAL For High Blood Pressure 04/21/20 16:30 07/15/20 04:29 Insulin Aspart (NovoLOG) BEFORE MEALS AND HS SUBQ 04/21/20 11:30 07/15/20 06:29 04/22/20 12:27 Insulin Aspart (NovoLOG) 20 units NOVOTIAC SUBQ 04/22/20 11:50 07/19/20 16:49 04/22/20 12:27 Insulin Detemir (Levemir) 60 units BEDTIME SUBQ 04/22/20 21:00 07/19/20 20:59 Methylprednisolone (Medrol) 4 mg ACBREAKFAST ORAL 04/22/20 06:30 04/25/20 08:30 04/22/20 05:41 Methylprednisolone (Medrol) 4 mg QHS ORAL 04/21/20 21:00 04/22/20 22:00 04/21/20 21:19 Morphine Sulfate (Morphine Sulfate) 1 mg Q4H PRN IVP Moderate Pain (Pain Scale 4-6) 04/21/20 11:15 04/23/20 11:14 Morphine Sulfate (Morphine Sulfate) 4 mg Q4H PRN IVP Severe Pain (Pain Scale 7-10) 04/21/20 11:15 04/23/20 11:14 04/22/20 04:55 Ondansetron HCl (Zofran) 4 mg Q6H PRN IVP Nausea & Vomiting 04/21/20 11:15 05/16/20 11:14 Polyethylene Glycol (Miralax) 17 gm HSPRN PRN ORAL Constipation 04/21/20 11:15 05/21/20 11:14 Assessment/Plan Problems: (1) ACS (acute coronary syndrome) (2) History of diabetes mellitus (3) History of TIAs (4) History of hypertension Assessment/Plan doing better Blood sugar better, still 170-200 on Levemir 60 and 20 of Novolog before meals symptomatic treatment f/u cardiology recommendation. dvt prophylaxis sliding scale\ dc planning in process, pt prefers to go to a rehab facility. Milad Scruggs MD Apr 22, 2020 12:44
--- NOTE | 2020-04-22 14:05 | NUR ---
DISCHARGE PLANNING DC ORDER GIVEN CM SPOKE TO PATIENT AT LENGTH AT BEDSIDE PATIENT AGREEABLE PATIENT TO MAKE F/U APPT WITH NEUROLOGIST REGARDING POSSIBLE SLE PATIENT CALLING FAMILY TO INFORM OF DISCHARGE PATIENT AGREEABLE
--- NOTE | 2020-04-22 14:06 | NUR ---
*-*DISCHARGE PLANNED*-* PATIENT HAS BEEN ACCEPTED AND WILL BE DISCHARGED TO: [facility] P: [phone] FOR NURSE TO NURSE REPORT ROOM# 15.A SKILLED [facility] TRANSPORTATION SET FOR 3PM, S/W RUDY [id number] PATIENT WILL NOTIFY FAMILY ABOUT DISCHARGE PLAN.
--- NOTE | 2020-04-22 14:40 | NUR ---
NURSE NOTES: Called and gave report to Amanda BAH at [facility].
[2020-04-22] MEDS: HydrALAZINE 25mg tab ORAL PRN ×2 (14:56→21:30)
--- NOTE | 2020-04-22 15:07 | NUR ---
NURSE NOTES: EMS arrived to transport patient, VS taken, BP 170/92. Hydralazine PRN given for high BP and morphine PRN given for pain. [facility] EMS crew informed that RN will call. Addendum: 04/22/20 at 1509 by Manda Huitron RN Edit: BP 172/90
--- NOTE | 2020-04-22 15:40 | NUR ---
NURSE NOTES: BP reassessed s/p Hydralazine PRN. BP 165/88. Patient states her pain is improving s/p Morphine PRN.
--- NOTE | 2020-04-22 16:28 | NUR ---
NURSE NOTES: Dr. Scruggs notified of elevated blood pressure s/p Hydralazine PRN. New order received and entered.
--- NOTE | 2020-04-22 17:41 | NUR ---
NURSE NOTES: Patient's blood pressure 158/87. [facility] called for transport. ETA 45 mins to 1 hour.
--- NOTE | 2020-04-22 18:30 | Cardiology Progress Note ---
Assessment/Plan Assessment/Plan 1. Left chest wall pain. 2. Leg cramps. 3. Diabetes mellitus. 4. Hypertension. 5. Diverticulosis. 6. Cervical spine and lumbar spine radiculopathy still with tenderness / pain trop relatively flat will repeat level tonite en in am duplex neg spin report noted echo reviewed personally wall motion is normal xrayof rib and sternum no fx tenderness improvedc Subjective Cardiovascular: Reports: chest pain - imporved Respiratory: Reports: shortness of breath Gastrointestinal/Abdominal: Denies: abdominal pain Genitourinary: Denies: burning Subjective tenderness now better as of today Objective Last 24 Hour Vital Signs Date Time Temp Pulse Resp B/P (MAP) Pulse Ox O2 Delivery O2 Flow Rate FiO2 04/22/20 17:39 92 158/87 (110) 04/22/20 17:08 95 161/87 (111) 04/22/20 16:27 169/90 04/22/20 16:00 98.4 94 16 169/90 (116) 96 04/22/20 15:39 92 165/88 (113) 04/22/20 14:56 172/90 04/22/20 14:55 99 172/90 (117) 04/22/20 12:00 97.7 85 16 150/79 (102) 96 04/22/20 09:07 121/65 04/22/20 09:06 86 121/65 04/22/20 09:00 Nasal Cannula 2.0 04/22/20 08:00 97.7 86 16 121/65 (83) 98 04/22/20 05:25 97.4 04/22/20 04:00 97.4 79 18 143/78 (99) 99 04/22/20 00:00 98.4 87 17 133/73 (93) 96 04/21/20 21:00 Nasal Cannula 3.0 04/21/20 20:00 97.6 104 18 139/78 (98) 98 General Appearance: no apparent distress, alert Cardiovascular: normal rate, regular rhythm Respiratory/Chest: lungs clear, normal breath sounds Abdomen: normal bowel sounds, non tender, soft Extremities: no swelling Intake and Output 04/21/20 04/22/20 19:00 07:00 Intake Total 400 ml 800 ml Output Total 500 ml 900 ml Balance -100 ml -100 ml Intake Oral 400 ml 800 ml Output Urine Total 500 ml 900 ml Laboratory Tests Test 04/21/20 21:22 04/22/20 04:00 04/22/20 05:38 04/22/20 11:56 POC Whole Blood Glucose 303 MG/DL (74-106) H 268 MG/DL (74-106) H Pending White Blood Count 6.6 K/UL (4.8-10.8) Red Blood Count 4.21 M/UL (4.20-5.40) Hemoglobin 13.5 G/DL (12.0-16.0) Hematocrit 41.3 % (37.0-47.0) Mean Corpuscular Volume 98 FL (80-99) Mean Corpuscular Hemoglobin 32.1 PG (27.0-31.0) H Mean Corpuscular Hemoglobin Concent 32.7 G/DL (32.0-36.0) Red Cell Distribution Width 11.8 % (11.6-14.8) Platelet Count 297 K/UL (150-450) Mean Platelet Volume 7.4 FL (6.5-10.1) Neutrophils (%) (Auto) 69.7 % (45.0-75.0) Lymphocytes (%) (Auto) 19.1 % (20.0-45.0) L Monocytes (%) (Auto) 8.3 % (1.0-10.0) Eosinophils (%) (Auto) 2.2 % (0.0-3.0) Basophils (%) (Auto) 0.6 % (0.0-2.0) Sodium Level 139 MMOL/L (136-145) Potassium Level 4.3 MMOL/L (3.5-5.1) Chloride Level 102 MMOL/L (98-107) Carbon Dioxide Level 29 MMOL/L (21-32) Anion Gap 8 mmol/L (5-15) Blood Urea Nitrogen 20 mg/dL (7-18) H Creatinine 0.7 MG/DL (0.55-1.30) Estimat Glomerular Filtration Rate > 60 mL/min (>60) Glucose Level 271 MG/DL (74-106) H Calcium Level 8.4 MG/DL (8.5-10.1) L Test 04/22/20 16:29 POC Whole Blood Glucose 134 MG/DL (74-106) H Steven Andrews MD Apr 22, 2020 18:30
--- NOTE | 2020-04-22 19:04 | Discharge Summary ---
Discharge Summary Hospital Course Date of Admission Apr 16, 2020 at 02:00 Date of Discharge Admitting Diagnosis chest pain, ACS HPI Dada James is a 64 year old female who was admitted on Apr 16, 2020 at 02: 00 for Chest Pain, Acute Coronary Syndrome Discharge Discharge Vital Signs Last Vital Signs Date Time Temp Pulse Resp B/P (MAP) Pulse Ox O2 Delivery O2 Flow Rate FiO2 04/22/20 17:39 92 158/87 (110) 04/22/20 16:00 98.4 16 96 04/22/20 09:00 Nasal Cannula 2.0 Discharge Disposition Patient was discharged to Kelvin Tim MD Apr 22, 2020 19:03
--- NOTE | 2020-04-22 19:24 | NUR ---
NURSE NOTES: Patient's blood pressure 169/94 on EMS arrival. Called and spoke with Gina at [facility], per Gina, facility will not accept patient "until the blood pressure is stable." Called and notified Dr. Tim facility is refusing patient and notified MD of current blood pressure, per Dr. Tim "that's ok. Discharge her tomorrow morning." Charge nurse notified. Addendum: 04/22/20 at 1947 by Manda Huitron RN Add: Patient is asymptomatic related to high blood pressure, denies headache, requesting pain medication for lower back pain, endorsed to Yamilet BAH.
--- NOTE | 2020-04-22 19:39 | NUR ---
HAND-OFF: Report given to Yamilet BAH.
--- NOTE | 2020-04-22 19:40 | NUR ---
NURSE NOTES: Received report from OLVIN Holman. Patient alert, oriented, sitting up in bed. No distress noted. Saline lock in LFA, patent and intact. External urine catheter intact, draining clear yellow urine. Encouraged to call as needed for assistance. Bed in low position, locked, side rails up x3, padded. Call light within reach. Will continue to monitor.
--- NOTE | 2020-04-22 20:00 | NUR ---
NURSE NOTES: Patient states feels very hungry. Wasn't able to eat much of dinner, states she had sorbet and not much else. Given half chicken salad sandwich, milk, and apple juice.
[2020-04-22] MEDS ORDERED: Levemir Flexpen SUBQ SCH (21:00)
[2020-04-23] VITALS: BP 148/89
[2020-04-23 04:00] VITALS: BP 151/86
[2020-04-23] MEDS: HydrALAZINE 25mg tab ORAL PRN (04:01)
[2020-04-23] MEDS: Morphine Sulfate 4mg/ml Inj (IV USE ONLY) IVP PRN (04:09)
[2020-04-23] MEDS: NovoLOG Insulin Flexpen SUBQ SCH ×2 (05:52→05:54)
[2020-04-23] MEDS: Cyclobenzaprine 10mg Tab ORAL SCH ×2 (05:56→11:10)
--- NOTE | 2020-04-23 06:17 | General Progress Note ---
Assessment/Plan Problem List: (1) ACS (acute coronary syndrome) ICD Codes: I24.9 - Acute ischemic heart disease, unspecified SNOMED: 104466469 (2) History of diabetes mellitus ICD Codes: Z86.39 - Personal history of other endocrine, nutritional and metabolic disease SNOMED: 329071608 (3) History of TIAs ICD Codes: Z86.73 - Personal history of transient ischemic attack (TIA), and cerebral infarction without residual deficits SNOMED: 491536202 (4) History of hypertension ICD Codes: Z86.79 - Personal history of other diseases of the circulatory system SNOMED: 661345078 Assessment/Plan: continue Levemir 60 units qhs continue Novolog 20 units ac tid continue Novolog sliding scale ac hs Subjective Allergies: Coded Allergies: No Known Allergies (Verified , 03/24/11) All Systems: reviewed and negative except above Subjective events noted glucose values are improving but still on higher side Medrol reduced to 4 mg daily Item Value Date Time Bedside Blood Glucose 300 mg/dl H 04/23/20 0554 Bedside Blood Glucose 251 mg/dl H 04/22/20 2134 Bedside Blood Glucose 134 mg/dl H 04/22/20 1708 Bedside Blood Glucose 174 mg/dl H 04/22/20 1230 Bedside Blood Glucose 268 mg/dl H 04/22/20 0630 Objective Last 24 Hour Vital Signs Date Time Temp Pulse Resp B/P (MAP) Pulse Ox O2 Delivery O2 Flow Rate FiO2 04/23/20 04:01 151/86 04/23/20 04:00 97.8 90 18 151/86 (107) 98 04/23/20 00:00 97.9 92 18 148/89 (108) 98 04/22/20 21:30 151/84 04/22/20 21:00 Room Air 04/22/20 20:30 98.3 93 18 151/84 (106) 97 04/22/20 19:23 92 169/94 (119) 04/22/20 17:39 92 158/87 (110) 04/22/20 17:08 95 161/87 (111) 04/22/20 16:27 169/90 04/22/20 16:00 98.4 94 16 169/90 (116) 96 04/22/20 15:39 92 165/88 (113) 7/6/20 14:56 172/90 04/22/20 14:55 99 172/90 (117) 04/22/20 12:00 97.7 85 16 150/79 (102) 96 04/22/20 09:07 121/65 04/22/20 09:06 86 121/65 04/22/20 09:00 Nasal Cannula 2.0 04/22/20 08:00 97.7 86 16 121/65 (83) 98 Intake and Output 04/22/20 04/23/20 19:00 07:00 Intake Total 1000 ml Output Total 1400 ml Balance -400 ml Intake Oral 1000 ml Output Urine Total 1400 ml Laboratory Tests 04/22/20 11:56: POC Whole Blood Glucose [Pending] 04/22/20 16:29: POC Whole Blood Glucose 134H 04/22/20 21:26: POC Whole Blood Glucose 251H 04/23/20 05:43: POC Whole Blood Glucose 300H Height (Feet): 5 Height (Inches): 8.00 Weight (Pounds): 166 General Appearance: no apparent distress Neck: normal alignment Cardiovascular: normal rate, regular rhythm Respiratory/Chest: lungs clear Abdomen: normal bowel sounds Pelvis: normal external exam Objective Current Medications Medications (Trade) Dose Ordered Sig/Ranjeet Route PRN Reason Start Time Stop Time Status Last Admin Dose Admin Acetaminophen (Tylenol) 650 mg Q4H PRN ORAL Mild Pain (Pain Scale 1-3) 04/21/20 11:00 05/16/20 10:59 Amlodipine Besylate (Norvasc) 5 mg DAILY ORAL 04/22/20 09:00 05/19/20 08:59 04/22/20 09:06 Aspirin (ASA) 81 mg DAILY ORAL 04/22/20 09:00 05/31/20 12:29 04/22/20 09:06 Clonidine HCl (Catapres Tab) 0.1 mg BID ORAL 04/22/20 16:23 07/21/20 16:22 04/22/20 16:27 Cyclobenzaprine HCl (Flexeril) 10 mg TID@0600,1300,1800 ORAL 04/23/20 06:00 05/21/20 12:59 04/23/20 05:56 Dextrose (Dextrose 50%) 25 ml Q30M PRN IV Hypoglycemia 04/21/20 11:00 07/19/20 15:29 Dextrose (Dextrose 50%) 50 ml Q30M PRN IV Hypoglycemia 04/21/20 11:00 07/19/20 15:29 Enalapril Maleate (Vasotec) 10 mg DAILY ORAL 04/22/20 09:00 05/16/20 12:14 04/22/20 09:07 Enoxaparin Sodium (Lovenox) 40 mg Q24H SUBQ 04/22/20 09:00 07/15/20 08:59 04/22/20 09:07 Hydralazine HCl (Apresoline) 25 mg Q6H PRN ORAL For High Blood Pressure 04/21/20 16:30 07/15/20 04:29 04/23/20 04:01 Insulin Aspart (NovoLOG) BEFORE MEALS AND HS SUBQ 04/21/20 11:30 07/15/20 06:29 04/23/20 05:52 Insulin Aspart (NovoLOG) 20 units NOVOTIAC SUBQ 04/22/20 11:50 07/19/20 16:49 04/23/20 05:54 Insulin Detemir (Levemir) 60 units BEDTIME SUBQ 04/22/20 21:00 07/19/20 20:59 04/22/20 21:33 Methylprednisolone (Medrol) 4 mg ACBREAKFAST ORAL 04/22/20 06:30 04/25/20 08:30 04/23/20 05:55 Morphine Sulfate (Morphine Sulfate) 1 mg Q4H PRN IVP Moderate Pain (Pain Scale 4-6) 04/21/20 11:15 04/23/20 11:14 Morphine Sulfate (Morphine Sulfate) 4 mg Q4H PRN IVP Severe Pain (Pain Scale 7-10) 04/21/20 11:15 04/23/20 11:14 04/23/20 04:09 Ondansetron HCl (Zofran) 4 mg Q6H PRN IVP Nausea & Vomiting 04/21/20 11:15 05/16/20 11:14 Polyethylene Glycol (Miralax) 17 gm HSPRN PRN ORAL Constipation 04/21/20 11:15 05/21/20 11:14 04/22/20 23:50 Edison Beal MD Apr 23, 2020 06:17
--- NOTE | 2020-04-23 07:40 | NUR ---
HAND-OFF: Report given to OLVIN Posey. Rounds done, patient in stable condition.
--- NOTE | 2020-04-23 07:45 | NUR ---
NURSE NOTES: Received report from OLVIN Woodard. Patient awake in bed. A&Ox4. No distress noted. Saline lock in LFA, patent and intact. Planned to discharge in the morning. Encouraged to call as needed for assistance. Bed in low position, locked, side rails up x3, padded. Call light within reach. Will continue to monitor.
[2020-04-23 08:00] VITALS: BP 146/82
[2020-04-23] MEDS: Aspirin Baby 81mg ORAL SCH (08:30)
[2020-04-23] MEDS: Enalapril 5mg tab ORAL SCH (08:31)
[2020-04-23 08:32] VITALS: BP 138/75
[2020-04-23] MEDS: Enoxaparin 40mg Inj SUBQ SCH (09:00)
--- NOTE | 2020-04-23 11:18 | NUR ---
NURSE NOTES: Pt in stable condition. Vital signs stable. All belongings were accounted for. Discharge packet and report given to ambulance. Report already given to the facility yesterday. Called the facility for ETA. Pt transferred to [facility] via gurney by ambulance.
== END 2020-04-23 11:20 | DRG 311 ==
LOC: EDBD 00:44 → EDUNIT# 00:44 → EMR 01:48 → 2E 02:00 → EDBEDREQ 02:14 → 2E 05:34 → 3E 04-21 11:58
DX: I24.9 Acute ischemic heart disease, unspecified (principal); M54.16 Radiculopathy, lumbar region; I10 Essential (primary) hypertension; M48.061 Spinal stenosis, lumbar region without neurogenic claudication; Z86.19 Personal history of other infectious and parasitic diseases; M47.892 Other spondylosis, cervical region; M19.90 Unspecified osteoarthritis, unspecified site; E83.110 Hereditary hemochromatosis; E11.9 Type 2 diabetes mellitus without complications; R25.2 Cramp and spasm; K57.90 Diverticulosis of intestine, part unspecified, without perforation or abscess without bleeding; Z86.73 Personal history of transient ischemic attack (TIA), and cerebral infarction without residual deficits
CPT/HCPCS: 36415; 70553; 71045; 71120; 72141; 72146; 72148; 80048; 80053; 82550; 82565; 82607; 82962; 83036; 83735; 83921; 84484; 84520; 85025; 85651; 86039; 86140; 86592; 86780; 93005; 93306; 93970; 96374; 99285; A9585; J1815; S5561